=== PATIENT | female | born 1970 | race Caucasian/White ===

== ENCOUNTER 2018-11-29 12:03 | Emergency (ER) | payer BC ==
[~2018-11-29] VITALS: Ht 165.1 cm; Wt 128.8 kg
[~2018-11-29 12:03] MED LIST: ASPI-630 PO; ATOR10TA PO; LISI1TAB3 PO; METF500T16 PO; SITA100T PO
[2018-11-29 12:19] VITALS: BP 178/103
--- NOTE | 2018-11-29 12:30 | PHYS DOC ---
Past Medical History Past Medical History: Diabetes-Type II, Hypertension Past Surgical History: Appendectomy, Tubal ligation Alcohol Use: None Drug Use: None Adult General Chief Complaint Chief Complaint: KNEE INJURY HPI HPI Patient is a 48 year old female with history of hypertension, diabetes type 2, who presents today complaining of moderate pain to the left knee specifically the back of the knee that began yesterday, patient states she was stepping off a curb, and bend her knee the wrong way. She states the pain is worse on flexion of the knee. She states she is able to walk and bear weight to the left lower extremity. Review of Systems Review of Systems Constitutional: Denies fever or chills [] Musculoskeletal: Reports left knee pain Integument: Denies rash or skin lesions [] Neurologic: Denies headache, focal weakness or sensory changes [] All other systems were reviewed and found to be within normal limits, except as documented in this note. Allergies Allergies Allergies Coded Allergies Type Severity Reaction Last Updated Verified codeine Allergy Intermediate 10/20/15 Yes Physical Exam Physical Exam Constitutional: Well developed, well nourished, no acute distress, non-toxic appearance. [] Back: No tenderness, no CVA tenderness. [] Extremities: Left knee with no obvious deformity. No tenderness on exam. Pain elicited on flexion of the knee. Adequate extension of the knee. No laxity. +2 left pedal pulse. Cap refill less than 2 seconds the left lower extremity. Neurologic: Alert and oriented X 3, normal motor function, normal sensory function, no focal deficits noted. [] Psychologic: Affect normal, judgement normal, mood normal. [] Current Patient Data Vital Signs Vital Signs Date Time Temp Pulse Resp B/P (MAP) Pulse Ox O2 Delivery O2 Flow Rate FiO2 11/29/18 12:19 98.4 97 18 178/103 (128) 98 Room Air 98.4 EKG EKG [] Radiology/Procedures Radiology/Procedures []PROCEDURE: KNEE LEFT 3V KNEE LEFT 3V (AP, oblique, lateral) INDICATION: PAIN BEHIND KNEE AFTER FEELING A POP WHEN STEPPING OFF A CURB COMPARISON: None. FINDINGS: No acute fracture or malalignment. Severe medial compartment space narrowing. Otherwise moderate tricompartmental arthrosis. No obvious suprapatellar joint effusion, although patient's body habitus limits evaluation Bony mineralization is normal for the patient's age. No significant soft tissue abnormality. No radiopaque foreign body. IMPRESSION: 1. No acute fracture or malalignment. 2. Severe medial compartment space narrowing. Otherwise moderate tricompartmental arthrosis. Electronically signed by: Justyn Heath MD (11/29/2018 1:20 PM) [facility] DICTATED and SIGNED BY: JUSTYN HEATH MD DATE: 11/29/18 1320 Course & Med Decision Making Course & Med Decision Making Pertinent Labs and Imaging studies reviewed. (See chart for details) This is a 48-year-old male patient presenting to the ED today with left knee pain after stepping off a curb wrong. Left knee x-rays interpreted by radiologist are negative for any acute findings, noted for DJD of the left knee. Patient advised to ice and elevate the extremity. Given prescription for diclofenac. Follow-up with orthopedic doctor in 1-2 weeks. Dragon Disclaimer Dragon Disclaimer This electronic medical record was generated, in whole or in part, using a voice recognition dictation system. Departure Departure Impression: Primary Impression: Left knee sprain Disposition: 01 HOME, SELF-CARE Condition: STABLE Referrals: NEREIDA GRIER MD (PCP) DAWN BERNSTEIN MD follow up in 1 week Patient Instructions: Knee Sprain, [id number] Additional Instructions: You were evaluated in the emergency room for left knee pain, your left knee x- rays are negative for any acute findings you were noted for arthritis in your knee. We encourage you to ice and elevate the extremity. We wrote a prescription for pain medicines, take it as needed for pain. Follow-up with the orthopedic doctor provided in 1-2 weeks. Scripts Diclofenac Sodium (DICLOFENAC SODIUM) 50 Mg Tablet.dr 1 TAB PO BID, #20 TAB 0 Refills Prov: SALOMEKAREL APRN 11/29/18 Problem Qualifiers Primary Impression: Left knee sprain Encounter type: initial encounter Involved ligament of knee: unspecified ligament Qualified Codes: S83.92XA - Sprain of unspecified site of left knee, initial encounter KAREL MCMAHON APRN Nov 29, 2018 12:30
--- NOTE | 2018-11-29 13:23 | RAD ---
KNEE LEFT 3V (AP, oblique, lateral) INDICATION: PAIN BEHIND KNEE AFTER FEELING A POP WHEN STEPPING OFF A CURB COMPARISON: None. FINDINGS: No acute fracture or malalignment. Severe medial compartment space narrowing. Otherwise moderate tricompartmental arthrosis. No obvious suprapatellar joint effusion, although patient's body habitus limits evaluation Bony mineralization is normal for the patient's age. No significant soft tissue abnormality. No radiopaque foreign body. IMPRESSION: 1. No acute fracture or malalignment. 2. Severe medial compartment space narrowing. Otherwise moderate tricompartmental arthrosis. Electronically signed by: Justyn Heath MD (11/29/2018 1:20 PM) [facility]
[2018-11-29] MEDS ORDERED: DICL50TA4 PO (13:31)
== END 2018-11-29 13:45 | disposition home or self-care (01) ==
LOC: ER 12:03
DX: S83.8X2A Sprain of other specified parts of left knee, initial encounter (principal); E11.9 Type 2 diabetes mellitus without complications; I10 Essential (primary) hypertension; Z90.89 Acquired absence of other organs; Z98.51 Tubal ligation status; Z88.5 Allergy status to narcotic agent; W10.1XXA Fall (on)(from) sidewalk curb, initial encounter; Y93.89 Activity, other specified; Y92.89 Other specified places as the place of occurrence of the external cause; Y99.8 Other external cause status
CPT/HCPCS: 73562; 99283

== ENCOUNTER 2019-01-07 11:27 | Observation (INO) | payer BC ==
[~2019-01-07] VITALS: Ht 165.1 cm; Wt 139.3 kg
[~2019-01-07 11:27] MED LIST changes: +DICL50TA4 PO
[2019-01-07] MEDS ORDERED: ASPIRIN 325 MG TABLET PO ONE (12:00)
[2019-01-07] MEDS ORDERED: IV NORMAL SALINE 1000ML BAG 1,000 ML IV ONE (12:00)
[2019-01-07 12:08] LABS: BASO % 1 % (0-3); EOS # 0.2 x10^3/uL (0.0-0.7); EOS % 3 % (0-3); HEMATOCRIT 37.6 % (36.0-47.0); HEMOGLOBIN 12.4 g/dL (12.0-15.5); LYMPH # 2.4 x10^3/uL (1.0-4.8); LYMPH % 30 % (24-48); MEAN CORPUSCULAR HEMOGLOBIN 29 pg (25-35); MEAN CORPUSCULAR HGB CONC 33 g/dL (31-37); MEAN CORPUSCULAR VOLUME 88 fL (79-100); MONO # 0.6 x10^3/uL (0.0-1.1); MONO % 8 % (0-9); NEUT # 4.6 x10^3uL (1.8-7.7); NEUT % 59 % (31-73); PLATELET COUNT 280 x10^3/uL (140-400); RED BLOOD COUNT 4.29 x10^6/uL (3.50-5.40); RED CELL DISTRIBUTION WIDTH 14.1 % (11.5-14.5); WHITE BLOOD COUNT 7.9 x10^3/uL (4.0-11.0)
--- NOTE | 2019-01-07 12:15 | PHYS DOC ---
Past Medical History Past Medical History: Diabetes-Type II, Hypertension Past Surgical History: Appendectomy, Tubal ligation Smoking: Quit Greater Than 1 Year Alcohol Use: None Drug Use: None Adult General Chief Complaint Chief Complaint: CHEST PAIN HPI HPI Patient is a 48 year old female who presents with substernal chest pain that began yesterday morning at 0300. The pain woke her up from sleep and has been a constant pressure since onset. It radiated to between her shoulders and is associated with nausea but no vomiting. She has been more diaphoretic since onset. The pain is exertional, sometime pleuritic and worse with laying flat. She has experienced intermittent palpitations for the past day. Denies dizziness, cough, hemoptysis, unilateral lower extremity swelling, numbness or tingling. She is post menopausal and does not believe she could be . Review of Systems Review of Systems Constitutional: Denies fever or chills [] Eyes: Denies change in visual acuity, blurred vision or diplopia [] HENT: Denies nasal congestion or sore throat [] Respiratory: Denies cough, hemoptysis or shortness of breath [] Cardiovascular: Reports chest pain and palpitations. [] GI: Reports nausea. Denies abdominal pain, vomiting or diarrhea. [] : Denies dysuria or hematuria [] Musculoskeletal: Reports radiation of pain to back [] Integument: Denies rash or skin lesions [] Neurologic: Denies headache, dizziness, focal weakness or sensory changes [] Complete review of systems found to be within normal limits, except as documented in this note. Current Medications Current Medications Current Medications Medications (Trade) Dose Ordered Sig/[facility] Start Time Stop Time Status Last Admin Dose Admin Aspirin (Lacey Aspirin) 325 mg 1X ONCE 01/07/19 12:00 01/07/19 12:24 DC Fentanyl Citrate (Fentanyl 2ml Vial) 100 mcg STK-MED ONCE 01/07/19 13:42 01/07/19 13:43 DC Ondansetron HCl (Zofran) 4 mg 1X ONCE 01/07/19 14:00 01/07/19 14:01 01/07/19 13:46 4 MG Sodium Chloride 1,000 ml @ 1,000 mls/hr 1X ONCE 01/07/19 12:00 01/07/19 12:59 DC 01/07/19 12:20 1,000 MLS/HR Allergies Allergies Allergies Coded Allergies Type Severity Reaction Last Updated Verified aspirin Allergy Intermediate rash 01/07/19 Yes codeine Allergy Intermediate 10/20/15 Yes Physical Exam Physical Exam Constitutional: Obese female sitting in hospital bed concerned but in no acute distress, non-toxic appearance. [] HENT: Normocephalic, atraumatic. [] Eyes: EOMI, conjunctiva normal, no discharge. [] Neck: Normal range of motion, no tenderness, supple, no stridor. [] Cardiovascular:Heart rate regular rhythm, no murmur [] Lungs & Thorax: Bilateral breath sounds clear to auscultation [] Abdomen: Soft and nontender [] Skin: Warm and diaphoretic without erythema or rash. [] Extremities: Radial pulses +2 b/l, cap refill < 2 seconds, no cyanosis [] Neurologic: Alert and oriented, normal motor function, normal sensory function, no focal deficits noted. [] Psychologic: Affect normal, judgement normal, mood normal. [] Current Patient Data Vital Signs Vital Signs Date Time Temp Pulse Resp B/P (MAP) Pulse Ox O2 Delivery O2 Flow Rate FiO2 01/07/19 12:31 84 20 163/84 (110) 98 Room Air 01/07/19 11:30 98.9 98.9 Lab Values Laboratory Tests Test 01/07/19 11:40 01/07/19 11:41 White Blood Count 7.9 x10^3/uL (4.0-11.0) Red Blood Count 4.29 x10^6/uL (3.50-5.40) Hemoglobin 12.4 g/dL (12.0-15.5) Hematocrit 37.6 % (36.0-47.0) Mean Corpuscular Volume 88 fL (79-100) Mean Corpuscular Hemoglobin 29 pg (25-35) Mean Corpuscular Hemoglobin Concent 33 g/dL (31-37) Red Cell Distribution Width 14.1 % (11.5-14.5) Platelet Count 280 x10^3/uL (140-400) Neutrophils (%) (Auto) 59 % (31-73) Lymphocytes (%) (Auto) 30 % (24-48) Monocytes (%) (Auto) 8 % (0-9) Eosinophils (%) (Auto) 3 % (0-3) Basophils (%) (Auto) 1 % (0-3) Neutrophils # (Auto) 4.6 x10^3uL (1.8-7.7) Lymphocytes # (Auto) 2.4 x10^3/uL (1.0-4.8) Monocytes # (Auto) 0.6 x10^3/uL (0.0-1.1) Eosinophils # (Auto) 0.2 x10^3/uL (0.0-0.7) Basophils # (Auto) 0.0 x10^3/uL (0.0-0.2) Prothrombin Time 11.7 SEC (11.7-14.0) Prothrombin Time INR 0.9 (0.8-1.1) Sodium Level 140 mmol/L (136-145) Potassium Level 4.1 mmol/L (3.5-5.1) Chloride Level 102 mmol/L (98-107) Carbon Dioxide Level 28 mmol/L (21-32) Anion Gap 10 (6-14) Blood Urea Nitrogen 14 mg/dL (7-20) Creatinine 0.8 mg/dL (0.6-1.0) Estimated GFR (Cockcroft-Gault) 76.6 BUN/Creatinine Ratio 18 (6-20) Glucose Level 172 mg/dL (70-99) H Calcium Level 9.6 mg/dL (8.5-10.1) Magnesium Level 1.6 mg/dL (1.8-2.4) L Total Bilirubin 0.3 mg/dL (0.2-1.0) Aspartate Amino Transferase (AST) 21 U/L (15-37) Alanine Aminotransferase (ALT) 51 U/L (14-59) Alkaline Phosphatase 79 U/L (46-116) Creatine Kinase 96 U/L (26-192) Creatine Kinase MB (Mass) 1.0 ng/mL (0.0-3.6) Creatine Kinase MB Relative Index 1.0 % (0-4) Troponin I Quantitative < 0.017 ng/mL (0.000-0.055) FX-Wnu-D-Type Natriuretic Peptide 91 pg/mL (0-124) Total Protein 7.4 g/dL (6.4-8.2) Albumin 3.8 g/dL (3.4-5.0) Albumin/Globulin Ratio 1.1 (1.0-1.7) Lipase 122 U/L (73-393) D-Dimer (Lisset) 1.17 ug/mlFEU (0.00-0.50) H Laboratory Tests 01/07/19 11:40 Laboratory Tests 01/07/19 11:40 EKG EKG @1135: Normal sinus rhythm with rate of 92. Low voltage EKG. Possible Q waves in I and aVL with T wave inversion although moderate amount of baseline variability present. Upright QRS in aVR. Limb lead reversal possible. No ST segment elevation or depression. @1227: Normal sinus rhythm with rate of 77. No Q waves. Normal axis. No ST segment elevation or depression. No T wave inversion. Confirmed limb lead reversal on previous EKG at 1135.[] Radiology/Procedures Radiology/Procedures [] Course & Med Decision Making Course & Med Decision Making Pertinent Labs and Imaging studies reviewed. (See chart for details) Patient is a 48 year old female who was woke from sleep yesterday at 0300 with substernal pressure radiating to her back. She has a history of HTN, DM2, and former tobacco use as well as a strong family history for CAD and family history of thrombosis. Patient is PERC negative but d-dimer pending given her family history of VTE. Patient denies cough, hemoptysis or unilateral leg swelling. Vital signs stable. CBC, PT/INR and CMP unremarkable aside from glucose of 172. Troponin negative. CK-MB negative. Pro-BNP negative. Heart score of 4. Patient complained of persistent pressure and nausea. Symptoms addressed with interval improvement. Pt states that she is allergic to aspirin and thus it was held in ED. Discussed with patient the benefits of admission for further evaluation of chest pain's etiology. D-dimer positive at 1.[address] order CT pulmonary angiogram. Will follow up with results. Patient requiring admission for further evaluation and treatment. Discussed with Dr. Beard who is in agreement with admission. Discussed findings and plan with patient, who acknowledge understanding and agreement. [] Dragon Disclaimer Dragon Disclaimer This electronic medical record was generated, in whole or in part, using a voice recognition dictation system. Departure Departure Impression: Primary Impression: Chest pain Additional Impressions: Elevated d-dimer Hyperglycemia Disposition: ADMITTED INPATIENT Admitting Physician: Other Condition: STABLE Referrals: NEREIDA GRIER MD (PCP) The HEART Score for CP Pts HEART Score for Chest Pain: HEART Score for Chest Pain Response (Comments) Value History Moderately Suspicious 1 ECG Nonspecific Repolarizatio 1 Age >45 - < 65 1 Risk Factors >3 Risk Factors or Hx CAD 2 Total 5 Risk Factors: Risk Factors: DM, Current or recent (<one month) smoker, HTN, HLP, family history of CAD, obesity. Risk Scores: Score 0 - 3: 2.5% MACE over next 6 weeks - Discharge Home Score 4 - 6: 20.3% MACE over next 6 weeks - Admit for Clinical Observation Score 7 - 10: 72.7% MACE over next 6 weeks - Early Invasive Strategies PERC Rule for PE PERC Rule for PE PERC Rule for PE Response (Comments) Value Age > 50: No 0 HR > 100: No 0 Sa02 on room air <95%: No 0 Unilateral leg swelling: No 0 Hemoptysis: No 0 Recent surgery or trauma: No 0 Prior PE or DVT: No 0 Hormone use: No 0 Total 0 Problem Qualifiers Primary Impression: Chest pain Chest pain type: unspecified Qualified Codes: R07.9 - Chest pain, unspecified JOSE NORTON DO January 07, 2019 12:15
--- NOTE | 2019-01-07 12:17 | EKG ---
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
[2019-01-07 12:18] LABS: PROTHROMBIN TIME PATIENT 11.7 SEC (11.7-14.0)
[2019-01-07 12:22] LABS: CALCIUM 9.6 mg/dL (8.5-10.1); CREATININE 0.8 mg/dL (0.6-1.0); GFR 76.6; POTASSIUM 4.1 mmol/L (3.5-5.1)
[2019-01-07 12:34] LABS: ALBUMIN 3.8 g/dL (3.4-5.0); ALBUMIN/GLOBULIN RATIO 1.1 (1.0-1.7); MAGNESIUM 1.6 mg/dL (1.8-2.4); TOTAL BILIRUBIN 0.3 mg/dL (0.2-1.0); TOTAL PROTEIN 7.4 g/dL (6.4-8.2)
--- NOTE | 2019-01-07 12:56 | EKG ---
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
[2019-01-07] MEDS ORDERED: fentaNYL PF VIAL 100 MCG/2 ML VIAL ONE (13:42)
[2019-01-07] MEDS ORDERED: fentaNYL PF VIAL 100 MCG/2 ML VIAL IV ONE (14:00)
[2019-01-07] MEDS ORDERED: DEXTROSE 50% 25 GM / 50ML DISP.SYRIN. IV PRN ×2 (14:00→17:15)
[2019-01-07] MEDS ORDERED: ONDANSETRON PF 4 MG/2 ML VIAL. IV ONE (14:00)
[2019-01-07] MEDS ORDERED: ONDANSETRON PF 4 MG/2 ML VIAL. IV PRN (14:00)
[2019-01-07] MEDS ORDERED: fentaNYL PF VIAL 100 MCG/2 ML VIAL IV PRN (14:00)
[2019-01-07] MEDS ORDERED: CONTRAST GIVEN. MC PRN (14:15)
--- NOTE | 2019-01-07 14:20 | PDOC1 ---
History and Physical Date of Admission Date of Admission DATE: 01/07/19 TIME: 14:20 Identification/Chief Complaint Chief Complaint Chest pain Source Source: Patient History of Present Illness History of Present Illness Ms Roland is a 48 year old female w/ PMHx DM2 (A1c 6.9), HTN, ex-smoker (8 years) who was woke from sleep yesterday at 0300 with substernal pressure radiating to her back. She fell back asleep most the day yesterday and awoke with the same pain this morning, but now also notes a squeezing pain beneath her left breast that is not reproducible. She went to urgent care where her BP was 205/117 and was instructed to go to the ED. Initially had concerning EKG, however noted to have upright QRS in AVR and repeat EKG confirmed limb lead reversal. Normal sinus rhythm with rate of 77. No Q waves. Normal axis. No ST segment elevation or depression. No T wave inversion. She has a strong family history for CAD and family history of thrombosis. Patient denies cough, hemoptysis or unilateral leg swelling. D dimer was elevated. CBC, PT/INR and CMP unremarkable aside from glucose of 172. Troponin negative. CK-MB negative. Pro-BNP negative. Patient complained of persistent pressure and nausea even after NTG. States she has an ASA allergy. CTPA performed which was of poor quality, no PE detected. Past Medical History Cardiovascular: HTN Pulmonary: Asthma CENTRAL NERVOUS SYSTEM: Other GI: No pertinent hx Heme/Onc: No pertinent hx Hepatobiliary: No pertinent hx Psych: No pertinent hx Musculoskeletal: Other Rheumatologic: No pertinent hx Infectious disease: No pertinent hx Endocrine: Diabetes Past Surgical History Past Surgical History: Appendectomy, Other Family History Family History: Coronary Artery Disease, Hypertension Social History Smoke: Quit (2010 quit) ALCOHOL: occassional Drugs: None Current Problem List Problem List Problems Medical Problems: (1) Chest pain Status: Acute (2) Elevated d-dimer Status: Acute (3) Hyperglycemia Status: Acute Current Medications Current Medications Current Medications Aspirin (Lacey Aspirin) 325 mg 1X ONCE PO ; Start 01/07/19 at 12:00; Stop 01/07/19 at 12:24; Status DC Sodium Chloride 1,000 ml @ 1,000 mls/hr 1X ONCE IV Last administered on 01/07/19at 12:20; Start 01/07/19 at 12:00; Stop 01/07/19 at 12:59; Status DC Fentanyl Citrate (Fentanyl 2ml Vial) 50 mcg 1X ONCE IV Last administered on 01/07/19at 13:47; Start 01/07/19 at 14:00; Stop 01/07/19 at 14:01; Status DC Ondansetron HCl (Zofran) 4 mg 1X ONCE IV Last administered on 01/07/19at 13:46; Start 01/07/19 at 14:00; Stop 01/07/19 at 14:01; Status DC Fentanyl Citrate (Fentanyl 2ml Vial) 100 mcg STK-MED ONCE .ROUTE ; Start 01/07/19 at 13:42; Stop 01/07/19 at 13:43; Status DC Ondansetron HCl (Zofran) 4 mg PRN Q8HRS PRN IV NAUSEA/VOMITING; Start 01/07/19 at 14:00; Stop 01/08/19 at 13:59 Fentanyl Citrate (Fentanyl 2ml Vial) 50 mcg PRN Q2HR PRN IV PAIN; Start at 14:00; Stop 01/08/19 at 13:59 Insulin Human Lispro (HumaLOG) 0-5 UNITS TIDWMEALS SQ ; Start 01/07/19 at 17:00 Dextrose (Dextrose 50%-Water Syringe) 12.5 gm PRN Q15MIN PRN IV SEE COMMENTS; Start 01/07/19 at 14:00 Iohexol (Omnipaque 350 Mg/ml) 100 ml 1X ONCE IV Last administered on 01/07/19at 14:07; Start 01/07/19 at 14:30; Stop 01/07/19 at 14:31 Info (CONTRAST GIVEN -- Rx MONITORING) 1 each PRN DAILY PRN MC SEE COMMENTS; Start 01/07/19 at 14:15; Stop 01/09/19 at 14:14 Active Scripts Active Diclofenac Sodium 50 Mg Tablet.dr 1 Tab PO BID Lipitor (Atorvastatin Calcium) 10 Mg Tablet 1 Tab PO QHS Aspirin 81 Mg Tab.chew 1 Tab PO DAILY Reported Januvia (Sitagliptin Phosphate) 100 Mg Tablet 1 Tab PO DAILY Lisinopril-Hctz 10-12.5 Mg Tab (Lisinopril/Hydrochlorothiazide) 1 Each Tablet 2 Tab PO DAILY Metformin Hcl 500 Mg Tablet 2 Tab PO BID Allergies Allergies: Coded Allergies: aspirin (Verified Allergy, Intermediate, rash, 01/07/19) codeine (Verified Allergy, Intermediate, 10/20/15) ROS General: YES: Fatigue; No: Chills, Night Sweats, Malaise, Appetite, Other PSYCHOLOGICAL ROS: No: Anxiety, Behavioral Disorder, Concentration difficultie, Decreased libido, Depression, Disorientation, Hallucinations, Hostility, Irritablity, Memory difficulties, Mood Swings, Obsessive thoughts, Physical abuse, Sexual abuse, Sleep disturbances, Suicidal ideation, Other Eyes: No Blurry vision, No Decreased vision, No Double vision, No Dry eyes, No Excessive tearing, No Eye Pain, No Itchy Eyes, No Loss of vision, No Photophobia, No Scotomata, No Uses contacts, No Uses glasses, No Other HEENT: No: Heacaches, Visual Changes, Hearing change, Nasal congestion, Nasal discharge, Oral lesions, Sinus pain, Sore Throat, Epistaxis, Sneezing, Snoring, Tinnitus, Vertigo, Vocal changes, Other ALLERGY AND IMMUNOLOGY: No: Hives, Insect Bite Sensitivity, Itchy/Watery Eyes, Nasal Congestion, Post Nasal Drip, Seasonal Allergies, Other Hematological and Lymphatic: No: Bleeding Problems, Blood Clots, Blood Transfusions, Brusing, Night Sweats, Pallor, Swollen Lymph Nodes, Other ENDOCRINE: No: Breast Changes, Galactorrhea, Hair Pattern Changes, Hot Flashes, Malaise/lethargy, Mood Swings, Palpitations, Polydipsia/polyuria, Skin Changes, Temperature Intolerance, Unexpected Weight Changes, Other Breast: No New/Changing Breast Lumps, No Nipple changes, No Nipple discharge, No Other Respiratory: YES: Shortness of breath; No: Cough, Hemoptysis, Orthopnea, Pleuritic Pain, SOB with excertion, Sputum Changes, Stridor, Tachypnea, Wheezing, Other Cardiovascular: yes Chest Pain; No Palpitations, No Orthopnea, No Paroxysmal Noc. Dyspnea, No Edema, No Lt Headedness, No Other Gastrointestinal: Yes Nausea; No Vomiting, No Abdominal Pain, No Diarrhea, No Constipation, No Melena, No Hematochezia, No Other Genitourinary: No Dysuria, No Frequency, No Incontinence, No Hematuria, No Retention, No Discharge, No Urgency, No Pain, No Flank Pain, No Other, No , No , No , No , No , No , No Musculoskeletal: No Gait Disturbance, No Joint Pain, No Joint Stiffness, No Joint Swelling, No Muscle Pain, No Muscular Weakness, No Pain In:, No Swelling In:, No Other Neurological: No Behavorial Changes, No Bowel/Bladder ControlChng, No Confusion, No Dizziness, No Gait Disturbance, No Headaches, No Impaired Coord/balance, No Memory Loss, No Numbness/Tingling, No Seizures, No Speech Problems, No Tremors, No Visual Changes, No Weakness, No Other Skin: No Dry Skin, No Eczema, No Hair Changes, No Lumps, No Mole Changes, No Mottling, No Nail Changes, No Pruritus, No Rash, No Skin Lesion Changes, No Other, No Acne Physical Exam General: Alert, Oriented X3, Cooperative, No acute distress HEENT: Atraumatic, PERRLA, EOMI, Mucous membr. moist/pink Lungs: Clear to auscultation, Normal air movement Heart: S1S2, RRR, no gallops, no murmurs Abdomen: Normal bowel sounds, Soft, No tenderness, No hepatosplenomegaly, No masses Rectal Exam: not examined Extremities: No clubbing, No cyanosis, No edema, Normal pulses, No tenderness/swelling Skin: No rashes, No breakdown, No significant lesion Neuro: Normal gait, Normal speech, Strength at 5/5 X4 ext, Normal tone, Sensation intact, Cranial nerves 3-12 NL, Reflexes 2+ Psych/Mental Status: Mental status NL, Mood NL Vitals Vitals Vital Signs Date Time Temp Pulse Resp B/P (MAP) Pulse Ox O2 Delivery O2 Flow Rate FiO2 01/07/19 12:31 84 20 163/84 (110) 98 Room Air 01/07/19 11:30 98.9 98.9 Labs Labs Laboratory Tests Test 01/07/19 11:40 01/07/19 11:41 White Blood Count 7.9 x10^3/uL (4.0-11.0) Red Blood Count 4.29 x10^6/uL (3.50-5.40) Hemoglobin 12.4 g/dL (12.0-15.5) Hematocrit 37.6 % (36.0-47.0) Mean Corpuscular Volume 88 fL (79-100) Mean Corpuscular Hemoglobin 29 pg (25-35) Mean Corpuscular Hemoglobin Concent 33 g/dL (31-37) Red Cell Distribution Width 14.1 % (11.5-14.5) Platelet Count 280 x10^3/uL (140-400) Neutrophils (%) (Auto) 59 % (31-73) Lymphocytes (%) (Auto) 30 % (24-48) Monocytes (%) (Auto) 8 % (0-9) Eosinophils (%) (Auto) 3 % (0-3) Basophils (%) (Auto) 1 % (0-3) Neutrophils # (Auto) 4.6 x10^3uL (1.8-7.7) Lymphocytes # (Auto) 2.4 x10^3/uL (1.0-4.8) Monocytes # (Auto) 0.6 x10^3/uL (0.0-1.1) Eosinophils # (Auto) 0.2 x10^3/uL (0.0-0.7) Basophils # (Auto) 0.0 x10^3/uL (0.0-0.2) Prothrombin Time 11.7 SEC (11.7-14.0) Prothromb Time International Ratio 0.9 (0.8-1.1) Sodium Level 140 mmol/L (136-145) Potassium Level 4.1 mmol/L (3.5-5.1) Chloride Level 102 mmol/L (98-107) Carbon Dioxide Level 28 mmol/L (21-32) Anion Gap 10 (6-14) Blood Urea Nitrogen 14 mg/dL (7-20) Creatinine 0.8 mg/dL (0.6-1.0) Estimated GFR (Cockcroft-Gault) 76.6 BUN/Creatinine Ratio 18 (6-20) Glucose Level 172 mg/dL (70-99) Calcium Level 9.6 mg/dL (8.5-10.1) Magnesium Level 1.6 mg/dL (1.8-2.4) Total Bilirubin 0.3 mg/dL (0.2-1.0) Aspartate Amino Transf (AST/SGOT) 21 U/L (15-37) Alanine Aminotransferase (ALT/SGPT) 51 U/L (14-59) Alkaline Phosphatase 79 U/L (46-116) Creatine Kinase 96 U/L (26-192) Creatine Kinase MB (Mass) 1.0 ng/mL (0.0-3.6) Creatine Kinase MB Relative Index 1.0 % (0-4) Troponin I Quantitative < 0.017 ng/mL (0.000-0.055) CN-Hff-E-Type Natriuretic Peptide 91 pg/mL (0-124) Total Protein 7.4 g/dL (6.4-8.2) Albumin 3.8 g/dL (3.4-5.0) Albumin/Globulin Ratio 1.1 (1.0-1.7) Lipase 122 U/L (73-393) D-Dimer (Lisset) 1.17 ug/mlFEU (0.00-0.50) Laboratory Tests Test 01/07/19 11:40 01/07/19 11:41 White Blood Count 7.9 x10^3/uL (4.0-11.0) Red Blood Count 4.29 x10^6/uL (3.50-5.40) Hemoglobin 12.4 g/dL (12.0-15.5) Hematocrit 37.6 % (36.0-47.0) Mean Corpuscular Volume 88 fL (79-100) Mean Corpuscular Hemoglobin 29 pg (25-35) Mean Corpuscular Hemoglobin Concent 33 g/dL (31-37) Red Cell Distribution Width 14.1 % (11.5-14.5) Platelet Count 280 x10^3/uL (140-400) Neutrophils (%) (Auto) 59 % (31-73) Lymphocytes (%) (Auto) 30 % (24-48) Monocytes (%) (Auto) 8 % (0-9) Eosinophils (%) (Auto) 3 % (0-3) Basophils (%) (Auto) 1 % (0-3) Neutrophils # (Auto) 4.6 x10^3uL (1.8-7.7) Lymphocytes # (Auto) 2.4 x10^3/uL (1.0-4.8) Monocytes # (Auto) 0.6 x10^3/uL (0.0-1.1) Eosinophils # (Auto) 0.2 x10^3/uL (0.0-0.7) Basophils # (Auto) 0.0 x10^3/uL (0.0-0.2) Prothrombin Time 11.7 SEC (11.7-14.0) Prothromb Time International Ratio 0.9 (0.8-1.1) Sodium Level 140 mmol/L (136-145) Potassium Level 4.1 mmol/L (3.5-5.1) Chloride Level 102 mmol/L (98-107) Carbon Dioxide Level 28 mmol/L (21-32) Anion Gap 10 (6-14) Blood Urea Nitrogen 14 mg/dL (7-20) Creatinine 0.8 mg/dL (0.6-1.0) Estimated GFR (Cockcroft-Gault) 76.6 BUN/Creatinine Ratio 18 (6-20) Glucose Level 172 mg/dL (70-99) Calcium Level 9.6 mg/dL (8.5-10.1) Magnesium Level 1.6 mg/dL (1.8-2.4) Total Bilirubin 0.3 mg/dL (0.2-1.0) Aspartate Amino Transf (AST/SGOT) 21 U/L (15-37) Alanine Aminotransferase (ALT/SGPT) 51 U/L (14-59) Alkaline Phosphatase 79 U/L (46-116) Creatine Kinase 96 U/L (26-192) Creatine Kinase MB (Mass) 1.0 ng/mL (0.0-3.6) Creatine Kinase MB Relative Index 1.0 % (0-4) Troponin I Quantitative < 0.017 ng/mL (0.000-0.055) ID-Bby-A-Type Natriuretic Peptide 91 pg/mL (0-124) Total Protein 7.4 g/dL (6.4-8.2) Albumin 3.8 g/dL (3.4-5.0) Albumin/Globulin Ratio 1.1 (1.0-1.7) Lipase 122 U/L (73-393) D-Dimer (Lisset) 1.17 ug/mlFEU (0.00-0.50) Images Images CTPA - The visualized thyroid gland grossly appears unremarkable. The central airways are patent. The caliber of the aorta grossly appears unremarkable. The heart size grossly appears unremarkable. No radiologically significant mediastinal lymphadenopathy is identified. There is not enough contrast within the pulmonary artery and its branches for evaluation of pulmonary embolism. The lungs are clear. No evidence of pleural effusion or pneumothorax. Diffuse decreased attenuation noted in the liver likely hepatic steatosis. Mild degenerative changes thoracic spine. VTE Prophylaxis Ordered VTE Prophylaxis Devices: Yes VTE Pharmacological Prophylaxi: Yes Assessment/Plan Assessment/Plan A/P: Chest pain - moderate-high risk for ACS given DM2, HTN, post-menopausal, family history positive. Initial troponin and EKG negative, will trend troponin, consult cardiology. DM2 (A1c 6.9) - on metformin, januvia and toujeo. Advised SGLT-2 and GLP-1 outpatient, willl place on basal bolus plus inpatient. Morbid Obesity - counseled on weight loss, advised SGLT-2 (jardiance) and GLP1 (victoza) for her DM2 as well HTN - cont home meds, monitor Ex-smoker - 8 years quit. Will monitor Hypomagnesemia - will replace, repeat level in AM Positive D dimer - CTPA not helpful, will consider VQ scan in AM, check dopplers of LE in meantime. will place on thromboprophylaxis FEN - Cardiac ADA diet, NPO after midnight PPX - lovenox FULL CODE CVC for chest pain higher risk for ACS CHELY MCGARRY MD January 07, 2019 14:20
[2019-01-07] MEDS ORDERED: IOHEXOL 350 MG/ML 100 ML VIAL. IV ONE (14:30)
--- NOTE | 2019-01-07 14:31 | RAD ---
Examination: CT angiography chest HISTORY: History of chest pain, elevated d-dimer COMPARISON: None available TECHNIQUE: Axial CT and radiographic images were performed with IV contrast. Coronal and sagittal 3-D MIP reformats are performed Exposure: One or more of the following individualized dose reduction techniques were utilized for this examination: 1. Automated exposure control 2. Adjustment of the mA and/or kV according to patient size 3. Use of iterative reconstruction technique FINDINGS: The visualized thyroid gland grossly appears unremarkable. The central airways are patent. The caliber of the aorta grossly appears unremarkable. The heart size grossly appears unremarkable. No radiologically significant mediastinal lymphadenopathy is identified. There is not enough contrast within the pulmonary artery and its branches for evaluation of pulmonary embolism. The lungs are clear. No evidence of pleural effusion or pneumothorax. Diffuse decreased attenuation noted in the liver likely hepatic steatosis. Mild degenerative changes thoracic spine. IMPRESSION: 1. Nondiagnostic exam as there is not enough contrast within the pulmonary artery and its branches for evaluation of pulmonary embolism. Recommend follow-up VQ scan and ultrasound lower extremity DVT study. 2. The lungs are clear. 3. Hepatic steatosis. Electronically signed by: Ron Dyer MD (01/07/2019 2:28 PM) [id number]
--- NOTE | 2019-01-07 16:00 | NUR ---
The patient, CORBY HAYES, 48 y/o F, was given written information regarding hospital policies, unit procedures and contact persons. Valuables checked and left in room with patient. Pt arrived to unit from ER via wheelchair. Pt ambulated to bed. Family at bedside. Pt reports midsternal chest pain improving and rated 5/10. No complaints of SOB. Blood pressure on admission reading 208/98 and heart rate 92. This RN given orders from cardiology RETREAD MOLD OPERATOR for 20 mg labetalol IVP. Pt resting in bed at this time. Call light within reach. Will continue to monitor.
[2019-01-07 16:20] VITALS: BP 208/98
[2019-01-07] MEDS ORDERED: LABETALOL 20 MG/4 ML DISP.SYRIN. IVP PRN (16:30)
[2019-01-07] MEDS ORDERED: INSULIN LISPRO 300 UNITS/3 ML INSULN.PEN. SQ SCH (17:00)
[2019-01-07] MEDS: INSULIN LISPRO 300 UNITS/3 ML INSULN.PEN. SQ SCH (17:30)
[2019-01-07] MEDS: hydroCHLOROthiazide 25 MG TABLET PO SCH (17:30)
[2019-01-07] MEDS: LISINOPRIL 20 MG TABLET PO SCH (17:30)
[2019-01-07 17:41] VITALS: BP 142/63
[2019-01-07] MEDS ORDERED: CHOL20009 PO (17:58)
[2019-01-07 19:20] VITALS: BP 136/66
[2019-01-07] MEDS ORDERED: MAGNESIUM SULFATE 4GM 100 ML IV ONE (20:00)
[2019-01-07] MEDS ORDERED: NITROGLYCERIN SUBLINGUAL 0.4 MG BOTTLE OF 25. SL PRN (20:00)
--- NOTE | 2019-01-07 20:22 | RAD ---
Bilateral lower extremity venous duplex study 01/07/2019 Clinical History: Elevated d-dimer. Chest pain. Technique: Using a combination of real time ultrasound imaging and color-flow and pulse Doppler imaging techniques along with graded compression and augmentation, duplex evaluation of the deep venous system of the both lower extremities was performed. Multiple images were obtained. Findings: The study is limited to some degree due to the patient's large body habitus. There is no sonographic evidence of deep venous thrombosis involving the visualized deep venous structures of either lower extremity. Impression: Negative study. Electronically signed by: Cm Jones MD (01/07/2019 8:19 PM) [facility]
[2019-01-07] MEDS: ATORVASTATIN CALCIUM 10 MG TABLET. PO SCH (22:10)
[2019-01-07] MEDS: ENOXAPARIN 40 MG/0.4 ML SYRINGE. SQ SCH (22:11)
[2019-01-07] MEDS: INSULIN GLARGINE 300 UNITS/3 ML INSULN.PEN. SQ SCH (22:19)
[2019-01-07 22:53] VITALS: BP 137/73
[2019-01-08] VITALS (14 sets, daily range): BP systolic 117–163; BP diastolic 56–87
[2019-01-08 05:56] LABS: CREATININE 0.9 mg/dL (0.6-1.0); GFR 66.8; MAGNESIUM 2.3 mg/dL (1.8-2.4); POTASSIUM 4.2 mmol/L (3.5-5.1)
[2019-01-08 06:11] LABS: CHOLESTEROL/HDL RATIO 4.1
[2019-01-08] MEDS: INSULIN LISPRO 300 UNITS/3 ML INSULN.PEN. SQ SCH ×3 (08:00→17:00)
[2019-01-08] MEDS ORDERED: [UNRECOGNIZED DRUG - OTHER] PO SCH (09:00)
[2019-01-08] MEDS: hydroCHLOROthiazide 25 MG TABLET PO SCH (09:00)
[2019-01-08] MEDS ORDERED: HYDROCHLOROTHIAZIDE PO SCH (09:00)
[2019-01-08] MEDS ORDERED: ASPIRIN CHEWABLE 81 MG TABLET. PO SCH (09:00)
[2019-01-08] MEDS ORDERED: LISINOPRIL PO SCH (09:00)
--- NOTE | 2019-01-08 09:06 | RAD ---
Ventilation/perfusion lung scan, 01/08/2019: HISTORY: Elevated d-dimer, chest pain The ventilation study was performed utilizing 15 mCi of xenon-133. Activity in the lungs is mildly heterogeneous, likely related to the patient's size. There is fairly good washout of the xenon from the lungs. Perfusion imaging was performed utilizing 5.5 mCi of technetium 99m MAA. A similar pattern of activity is present in the lungs. No significant unmatched or segmental perfusion defects are seen. IMPRESSION: There are no VQ findings to suggest pulmonary emboli. Electronically signed by: Cheko Guerin MD (01/08/2019 9:03 AM) [facility]
--- NOTE | 2019-01-08 09:35 | PDOC2 ---
SKYLA FINE CONTROL ROOM TENDER 01/08/19 0935: CARDIAC CONSULT DATE OF CONSULT Date of Consult DATE: 01/08/19 TIME: 09:23 REASON FOR CONSULT Reason for Consult: Chest pain REFERRING PHYSICIAN Referring Physician: Hannah SOURCE Source: Chart review, Patient HISTORY OF PRESENT ILLNESS HISTORY OF PRESENT ILLNESS This is a pleasant 48 yo female admitted for complains of chest pain. Reports that in the last week she has been more fatigue, noting some BOWDEN. Reports that in the last 2 days she has been having chest tightness. It got better the other but it returned yesterday. Reports of nausea associated with it, some SOA and diaphoretic lasting about 15 minutes at least. She has DM insulin dependent. No statin. Also was noted with high BP when admitted which is now better. No prior and recent respiratory infections, vomiting, falls, recent injury. NO hx of CAD, VTE. She has never been tested for JOESPH and has gained about 25lbs in the last yr. PAST MEDICAL HISTORY Cardiovascular: HTN Pulmonary: No pertinent hx CENTRAL NERVOUS SYSTEM: Other (No pertinent history) GI: No pertinent hx Heme/Onc: No pertinent hx Hepatobiliary: No pertinent hx Psych: No pertinent hx Musculoskeletal: Osteoarthritis Rheumatologic: No pertinent hx Infectious disease: No pertinent hx ENT: No pertinent hx Renal/: No pertinent hx Endocrine: Diabetes (2) Dermatology: No pertinent hx PAST SURGICAL HISTORY Past Surgical History: Appendectomy, (x1), Tubal Ligation, Other (lipoma removal to buttocks) FAMILY HISTORY Family History: Coronary Artery Disease (father and grandfather) SOCIAL HISTORY Smoke: Quit (8 yrs ago 19 pk yr) ALCOHOL: none Drugs: None Lives: with Family CURRENT MEDICATIONS CURRENT MEDICATIONS Current Medications Medications (Trade) Dose Ordered Sig/[place] Route PRN Reason Start Time Stop Time Status Last Admin Dose Admin Sodium Chloride 1,000 ml @ 1,000 mls/hr 1X ONCE IV 01/07/19 12:00 01/07/19 12:59 DC 01/07/19 12:20 Fentanyl Citrate (Fentanyl 2ml Vial) 50 mcg 1X ONCE IV 01/07/19 14:00 01/07/19 14:01 DC 01/07/19 13:47 Ondansetron HCl (Zofran) 4 mg 1X ONCE IV 01/07/19 14:00 01/07/19 14:01 DC 01/07/19 13:46 Iohexol (Omnipaque 350 Mg/ml) 100 ml 1X ONCE IV 01/07/19 14:30 01/07/19 14:31 DC 01/07/19 14:07 Labetalol HCl (Normodyne Iv Push) 20 mg PRN Q2HR PRN IVP HYPERTENSION 01/07/19 16:30 01/07/19 16:41 Atorvastatin Calcium (Lipitor) 10 mg QHS PO 01/07/19 21:00 01/07/19 22:10 Insulin Glargine (Lantus) 5 units QHS SQ 01/07/19 21:00 01/07/19 22:19 Magnesium Sulfate/ Dextrose 100 ml @ 25 mls/hr 1X ONCE IV 01/07/19 20:00 01/07/19 23:59 DC 01/07/19 22:12 Enoxaparin Sodium (Lovenox 40mg Syringe) 40 mg Q24H SQ 01/07/19 20:15 01/07/19 22:11 ALLERGIES ALLERGIES: Coded Allergies: aspirin (Verified Allergy, Intermediate, rash, 01/07/19) codeine (Verified Allergy, Intermediate, 10/20/15) ROS Review of System 14 point ROS evaluated with pertinent positives noted per HPI PHYSICAL EXAM General: Alert, Oriented X3, Cooperative, No acute distress HEENT: Atraumatic, Mucous membr. moist/pink Lungs: Clear to auscultation, Normal air movement Heart: Regular rate (SR), Normal S1, Normal S2, No murmurs Abdomen: Soft, No tenderness, Other (obese) Extremities: No cyanosis, Other (1+ bilateral LE pittingede) Skin: No breakdown, No significant lesion Neuro: Normal speech, Sensation intact Psych/Mental Status: Mental status NL, Mood NL MUSCULOSKELETAL: Osteoarthritic changes both hands VITALS VITALS Vital Signs Date Time Temp Pulse Resp B/P (MAP) Pulse Ox O2 Delivery O2 Flow Rate FiO2 01/08/19 07:52 Room Air 01/08/19 07:00 97.7 82 18 118/56 (76) 97 97.7 LABS Lab: Laboratory Tests Test 01/07/19 11:40 01/07/19 11:41 01/07/19 16:35 01/07/19 16:55 White Blood Count 7.9 x10^3/uL (4.0-11.0) Red Blood Count 4.29 x10^6/uL (3.50-5.40) Hemoglobin 12.4 g/dL (12.0-15.5) Hematocrit 37.6 % (36.0-47.0) Mean Corpuscular Volume 88 fL (79-100) Mean Corpuscular Hemoglobin 29 pg (25-35) Mean Corpuscular Hemoglobin Concent 33 g/dL (31-37) Red Cell Distribution Width 14.1 % (11.5-14.5) Platelet Count 280 x10^3/uL (140-400) Neutrophils (%) (Auto) 59 % (31-73) Lymphocytes (%) (Auto) 30 % (24-48) Monocytes (%) (Auto) 8 % (0-9) Eosinophils (%) (Auto) 3 % (0-3) Basophils (%) (Auto) 1 % (0-3) Neutrophils # (Auto) 4.6 x10^3uL (1.8-7.7) Lymphocytes # (Auto) 2.4 x10^3/uL (1.0-4.8) Monocytes # (Auto) 0.6 x10^3/uL (0.0-1.1) Eosinophils # (Auto) 0.2 x10^3/uL (0.0-0.7) Basophils # (Auto) 0.0 x10^3/uL (0.0-0.2) Prothrombin Time 11.7 SEC (11.7-14.0) Prothromb Time International Ratio 0.9 (0.8-1.1) Sodium Level 140 mmol/L (136-145) Potassium Level 4.1 mmol/L (3.5-5.1) Chloride Level 102 mmol/L (98-107) Carbon Dioxide Level 28 mmol/L (21-32) Anion Gap 10 (6-14) Blood Urea Nitrogen 14 mg/dL (7-20) Creatinine 0.8 mg/dL (0.6-1.0) Estimated GFR (Cockcroft-Gault) 76.6 BUN/Creatinine Ratio 18 (6-20) Glucose Level 172 mg/dL (70-99) Calcium Level 9.6 mg/dL (8.5-10.1) Magnesium Level 1.6 mg/dL (1.8-2.4) Total Bilirubin 0.3 mg/dL (0.2-1.0) Aspartate Amino Transf (AST/SGOT) 21 U/L (15-37) Alanine Aminotransferase (ALT/SGPT) 51 U/L (14-59) Alkaline Phosphatase 79 U/L (46-116) Creatine Kinase 96 U/L (26-192) Creatine Kinase MB (Mass) 1.0 ng/mL (0.0-3.6) Creatine Kinase MB Relative Index 1.0 % (0-4) Troponin I Quantitative < 0.017 ng/mL (0.000-0.055) < 0.017 ng/mL (0.000-0.055) TJ-Ulp-X-Type Natriuretic Peptide 91 pg/mL (0-124) Total Protein 7.4 g/dL (6.4-8.2) Albumin 3.8 g/dL (3.4-5.0) Albumin/Globulin Ratio 1.1 (1.0-1.7) Lipase 122 U/L (73-393) Thyroid Stimulating Hormone (TSH) 0.835 uIU/mL (0.358-3.74) D-Dimer (Lisset) 1.17 ug/mlFEU (0.00-0.50) Glucose (Fingerstick) 97 mg/dL (70-99) Test 01/07/19 20:00 01/07/19 20:56 01/08/19 05:00 01/08/19 07:22 Troponin I Quantitative < 0.017 ng/mL (0.000-0.055) Glucose (Fingerstick) 141 mg/dL (70-99) 148 mg/dL (70-99) Sodium Level 141 mmol/L (136-145) Potassium Level 4.2 mmol/L (3.5-5.1) Chloride Level 103 mmol/L (98-107) Carbon Dioxide Level 30 mmol/L (21-32) Anion Gap 8 (6-14) Blood Urea Nitrogen 12 mg/dL (7-20) Creatinine 0.9 mg/dL (0.6-1.0) Estimated GFR (Cockcroft-Gault) 66.8 Glucose Level 128 mg/dL (70-99) Calcium Level 9.0 mg/dL (8.5-10.1) Magnesium Level 2.3 mg/dL (1.8-2.4) Triglycerides Level 128 mg/dL (0-150) Cholesterol Level 165 mg/dL (0-200) LDL Cholesterol, Calculated 99 mg/dL (0-100) VLDL Cholesterol, Calculated 26 mg/dL (0-40) Non-HDL Cholesterol Calculated 125 mg/dL (0-129) HDL Cholesterol 40 mg/dL (40-60) Cholesterol/HDL Ratio 4.1 ASSESSMENT/PLAN ASSESSMENT/PLAN 1. Chest pain with typical features, UA 2. Accelerated HTN: now controlled 3. DM2: insulin dependent 4. DLP: LDL 99, not on statin and goal 5. Morbid obesity 6. Suspect OA 7. Elevated DDIMER: neg for VTE so far. 8. Allergy to ASA: possible angioedema when she was 7 yo as she was told. 9. Family hx of premature CAD; SCD grandfather at 48. CABG on father Recommendations 1. Plavix x1.. start on statin. continue with home ACEi 2. TTE. Will need outpt JOESPH w/u 3. Lifestyle modification 4. [facility] discussed, risks and benefits, agreeable to proceed. DIDI SILVESTRE MD 01/08/19 1459: CARDIAC CONSULT ASSESSMENT/PLAN ASSESSMENT/PLAN Patient seen and examined. Agree with SHANK STITCHER's assessment and plan. Chest pain with features concerning for unstable angina. Myocardial infarction has been ruled out. Check 2-D echo to assess LV systolic function. We will proceed with cardiac catheterization and possible angioplasty. Risks and benefits were explained and she is agreeable. Blood pressure better controlled since admission. Thank you for your consultation. SKYLA FINE APRN January 08, 2019 09:35 DIDI SILVESTRE MD January 08, 2019 14:59
--- NOTE | 2019-01-08 09:37 | CARD ---
MR#: [id number] Date of Study: 01/08/2019 Ordering Physician: SKYLA FINE, Referring Physician: TAMAR ARCE Tech: Nathalie Hidalgo [facility] APPROVED REPORT EXAM: Two-dimensional and M-mode echocardiogram with Doppler and color Doppler. Other Information Quality : Technically LimitedHR: 75bpm Rhythm : NSRTechnically limited study due to body habitus. INDICATION Chest Pain 2D DIMENSIONS RVDd2.8 (2.9-3.5cm)Left Atrium(2D)3.7 (1.6-4.0cm) IVSd0.8 (0.7-1.1cm)Aortic Root(2D)3.1 (2.0-3.7cm) LVDd5.1 (3.9-5.9cm)LVOT Diameter1.9 (1.8-2.4cm) PWd0.8 (0.7-1.1cm)LVDs3.8 (2.5-4.0cm) FS (%) 25.3 %SV62.7 ml LVEF(%)50.0 (>50%) Aortic Valve AoV Peak Tyrese.110.8cm/sAoV VTI26.7cm AO Peak GR.4.9mmHgLVOT Peak Tyrese.101.9cm/s AO Mean GR.3mmHgAVA (VMAX)2.73cm2 JOSÉ MIGUEL (VTI)2.70cm2 Mitral Valve MV E Djgsdzxy11.2cm/sMV DECEL [id number] MV A Dmkjegnx85.6cm/sE/A Ratio1.0 MV A [id number] Pulmonary Valve PV Peak Atpyawnl470.7cm/s LEFT VENTRICLE The left ventricle is normal size. There is normal left ventricular wall thickness. The left ventricu lar systolic function is normal and the ejection fraction is within normal range. The Ejection Fracti on is 50-55%. There is grossly normal LV segmental wall motion. Technically limited images. Transmitr al Doppler flow pattern is Grade I-abnormal relaxation pattern. RIGHT VENTRICLE The right ventricle is mildly to moderately dilated. There is normal right ventricular wall thickness . The right ventricular systolic function is normal. ATRIA The left atrium size is normal. The right atrium size is normal. The interatrial septum is intact wit h no evidence for an atrial septal defect or patent foramen ovale as noted on 2-D or Doppler imaging. AORTIC VALVE The aortic valve is probably trileaflet. It appears moderately calcified. Doppler and Color Flow reve aled no significant aortic regurgitation. There is no significant aortic valvular stenosis. MITRAL VALVE The mitral valve is normal in structure and function. There is no evidence of mitral valve prolapse. There is no mitral valve stenosis. Doppler and Color-flow revealed trace mitral regurgitation. TRICUSPID VALVE The tricuspid valve is normal in structure and function. Doppler and Color Flow revealed trace tricus pid regurgitation. There is no tricuspid valve prolapse or vegetation. There is no tricuspid valve st enosis. PULMONIC VALVE The pulmonic valve is not well visualized. GREAT VESSELS The aortic root is normal in size. The ascending aorta is normal in size. The IVC is normal in size a nd collapses >50% with inspiration. PERICARDIAL EFFUSION There is no evidence of significant pericardial effusion. Critical Notification Critical Value: No <Conclusion> There is grossly normal LV segmental wall motion. Technically limited images. The right ventricle is mildly to moderately dilated. Signed by : Jeyson Montague, Electronically Approved : 01/08/2019 09:37:14
[2019-01-08] MEDS ORDERED: CLOPIDOGREL BISULFATE 75 MG TABLET PO ONE (10:00)
--- NOTE | 2019-01-08 10:15 | PDOC ---
PROGRESS NOTES History of Present Illness History of Present Illness VTE Prophylaxis Ordered VTE Prophylaxis Devices: Yes VTE Pharmacological Prophylaxi: Yes Assessment/Plan Assessment/Plan A/P: Chest pain - moderate-high risk for ACS given DM2, HTN, post-menopausal, family history positive. Initial troponin and EKG negative, will trend troponin, consult cardiology. DM2 (A1c 6.9) - on metformin, januvia and toujeo. Advised SGLT-2 and GLP-1 outpatient, willl place on basal bolus plus inpatient. Morbid Obesity - counseled on weight loss, advised SGLT-2 (jardiance) and GLP1 (victoza) for her DM2 as well HTN - cont home meds, monitor Ex-smoker - 8 years quit. Will monitor Hypomagnesemia - will replace, repeat level in AM Positive D dimer - CTPA not helpful, will consider VQ scan in AM, check dopplers of LE in meantime. will place on thromboprophylaxis FEN - Cardiac ADA diet, NPO after midnight PPX - lovenox FULL CODE CVC for chest pain higher risk for ACS Vitals Vitals Vital Signs Date Time Temp Pulse Resp B/P (MAP) Pulse Ox O2 Delivery O2 Flow Rate FiO2 01/08/19 07:52 Room Air 01/08/19 07:00 97.7 82 18 118/56 (76) 97 97.7 Physical Exam General: Alert, Oriented X3, Cooperative, No acute distress Heart: Regular rate (SR), Normal S1, Normal S2, No murmurs Lungs: Clear Abdomen: Soft, No tenderness, Other (obese) Extremities: No cyanosis, Other (1+ bilateral LE pittingede) Skin: No breakdown, No significant lesion Labs LABS Technologist: Andrea Phan, RT (R) Nurse: Yvonne Augustine R.N. Procedure(s) performed: Left heart catheterization, selective coronary angiography and left ventriculography via right transradial approach Sedation Time: 23 Minutes Fluoro Time: 4.2 Minutes Dose: 41.97 Gycm2 Contrast: 96mL [id number] INDICATION The indication(s) include : unstable angina . CSHA Clinical Frailty Scale [facility] Clinical Frailty Scale: Well Heart Failure Heart Failure: No PROCEDURE NARRATIVE After explaining the risks, benefits and alternative options, informed consent was obtained from patient. Patient was brought to the cardiac Tax Map Technician and right wrist was prepped and draped in the usual fashion after confirming a positive modified Flex's test. Arterial access was obtained in the right radial artery and a 6 [place] Irish sheath was inserted. 6 Northern Irish Sanchez and 6 Northern Irish JL 3.5 catheters were used to perform selective angiography of the right and left coronary arteries. 6 Northern Irish pigtail catheter was used to perform left ventriculography. Patient tolerated the procedure well. Hemostasis was achieved using TR band. There were no immediate complications. The following findings were noted. FINDINGS 1. Hemodynamics: Left ventricular end-diastolic pressure of 14 mmHg. No pullback gradient across the aortic valve. 2. Left ventriculography: Normal left ventricle systolic function with ejection fraction estimated at 60%. No significant mitral regurgitation seen. 3. Coronary angiography: a. The left main coronary artery arose from the left sinus of Valsalva, gave rise to the left anterior descending and left circumflex arteries and did not show any significant stenosis. b. The left anterior descending artery did not show any significant stenosis. c. The left circumflex artery did not show any significant stenosis. d. The right coronary artery was a large and dominant vessel arising from the right sinus of Valsalva that did not show any significant stenosis. Conclusion 1. No significant coronary artery disease 2. Normal left ventricle systolic function with ejection fraction estimated at 60% Signed by : Easton Larsen, Electronically Approved : 01/08/2019 15:07:57 Laboratory Tests Test 01/07/19 11:40 01/07/19 11:41 01/07/19 16:35 01/07/19 16:55 White Blood Count 7.9 x10^3/uL (4.0-11.0) Red Blood Count 4.29 x10^6/uL (3.50-5.40) Hemoglobin 12.4 g/dL (12.0-15.5) Hematocrit 37.6 % (36.0-47.0) Mean Corpuscular Volume 88 fL (79-100) Mean Corpuscular Hemoglobin 29 pg (25-35) Mean Corpuscular Hemoglobin Concent 33 g/dL (31-37) Red Cell Distribution Width 14.1 % (11.5-14.5) Platelet Count 280 x10^3/uL (140-400) Neutrophils (%) (Auto) 59 % (31-73) Lymphocytes (%) (Auto) 30 % (24-48) Monocytes (%) (Auto) 8 % (0-9) Eosinophils (%) (Auto) 3 % (0-3) Basophils (%) (Auto) 1 % (0-3) Neutrophils # (Auto) 4.6 x10^3uL (1.8-7.7) Lymphocytes # (Auto) 2.4 x10^3/uL (1.0-4.8) Monocytes # (Auto) 0.6 x10^3/uL (0.0-1.1) Eosinophils # (Auto) 0.2 x10^3/uL (0.0-0.7) Basophils # (Auto) 0.0 x10^3/uL (0.0-0.2) Prothrombin Time 11.7 SEC (11.7-14.0) Prothromb Time International Ratio 0.9 (0.8-1.1) Sodium Level 140 mmol/L (136-145) Potassium Level 4.1 mmol/L (3.5-5.1) Chloride Level 102 mmol/L (98-107) Carbon Dioxide Level 28 mmol/L (21-32) Anion Gap 10 (6-14) Blood Urea Nitrogen 14 mg/dL (7-20) Creatinine 0.8 mg/dL (0.6-1.0) Estimated GFR (Cockcroft-Gault) 76.6 BUN/Creatinine Ratio 18 (6-20) Glucose Level 172 mg/dL (70-99) Calcium Level 9.6 mg/dL (8.5-10.1) Magnesium Level 1.6 mg/dL (1.8-2.4) Total Bilirubin 0.3 mg/dL (0.2-1.0) Aspartate Amino Transf (AST/SGOT) 21 U/L (15-37) Alanine Aminotransferase (ALT/SGPT) 51 U/L (14-59) Alkaline Phosphatase 79 U/L (46-116) Creatine Kinase 96 U/L (26-192) Creatine Kinase MB (Mass) 1.0 ng/mL (0.0-3.6) Creatine Kinase MB Relative Index 1.0 % (0-4) Troponin I Quantitative < 0.017 ng/mL (0.000-0.055) < 0.017 ng/mL (0.000-0.055) DN-Zry-Z-Type Natriuretic Peptide 91 pg/mL (0-124) Total Protein 7.4 g/dL (6.4-8.2) Albumin 3.8 g/dL (3.4-5.0) Albumin/Globulin Ratio 1.1 (1.0-1.7) Lipase 122 U/L (73-393) Thyroid Stimulating Hormone (TSH) 0.835 uIU/mL (0.358-3.74) D-Dimer (Lisset) 1.17 ug/mlFEU (0.00-0.50) Glucose (Fingerstick) 97 mg/dL (70-99) Test 01/07/19 20:00 01/07/19 20:56 01/08/19 05:00 01/08/19 07:22 Troponin I Quantitative < 0.017 ng/mL (0.000-0.055) Glucose (Fingerstick) 141 mg/dL (70-99) 148 mg/dL (70-99) Sodium Level 141 mmol/L (136-145) Potassium Level 4.2 mmol/L (3.5-5.1) Chloride Level 103 mmol/L (98-107) Carbon Dioxide Level 30 mmol/L (21-32) Anion Gap 8 (6-14) Blood Urea Nitrogen 12 mg/dL (7-20) Creatinine 0.9 mg/dL (0.6-1.0) Estimated GFR (Cockcroft-Gault) 66.8 Glucose Level 128 mg/dL (70-99) Calcium Level 9.0 mg/dL (8.5-10.1) Magnesium Level 2.3 mg/dL (1.8-2.4) Triglycerides Level 128 mg/dL (0-150) Cholesterol Level 165 mg/dL (0-200) LDL Cholesterol, Calculated 99 mg/dL (0-100) VLDL Cholesterol, Calculated 26 mg/dL (0-40) Non-HDL Cholesterol Calculated 125 mg/dL (0-129) HDL Cholesterol 40 mg/dL (40-60) Cholesterol/HDL Ratio 4.1 Assessment and Plan Assessmemt and Plan Problems Medical Problems: (1) Chest pain Status: Acute (2) Elevated d-dimer Status: Acute (3) Hyperglycemia Status: Acute Comment Review of Relevant I have reviewed the following items monique (where applicable) has been applied. Labs Laboratory Tests Test 01/07/19 11:40 01/07/19 11:41 01/07/19 16:35 01/07/19 16:55 White Blood Count 7.9 x10^3/uL (4.0-11.0) Red Blood Count 4.29 x10^6/uL (3.50-5.40) Hemoglobin 12.4 g/dL (12.0-15.5) Hematocrit 37.6 % (36.0-47.0) Mean Corpuscular Volume 88 fL (79-100) Mean Corpuscular Hemoglobin 29 pg (25-35) Mean Corpuscular Hemoglobin Concent 33 g/dL (31-37) Red Cell Distribution Width 14.1 % (11.5-14.5) Platelet Count 280 x10^3/uL (140-400) Neutrophils (%) (Auto) 59 % (31-73) Lymphocytes (%) (Auto) 30 % (24-48) Monocytes (%) (Auto) 8 % (0-9) Eosinophils (%) (Auto) 3 % (0-3) Basophils (%) (Auto) 1 % (0-3) Neutrophils # (Auto) 4.6 x10^3uL (1.8-7.7) Lymphocytes # (Auto) 2.4 x10^3/uL (1.0-4.8) Monocytes # (Auto) 0.6 x10^3/uL (0.0-1.1) Eosinophils # (Auto) 0.2 x10^3/uL (0.0-0.7) Basophils # (Auto) 0.0 x10^3/uL (0.0-0.2) Prothrombin Time 11.7 SEC (11.7-14.0) Prothromb Time International Ratio 0.9 (0.8-1.1) Sodium Level 140 mmol/L (136-145) Potassium Level 4.1 mmol/L (3.5-5.1) Chloride Level 102 mmol/L (98-107) Carbon Dioxide Level 28 mmol/L (21-32) Anion Gap 10 (6-14) Blood Urea Nitrogen 14 mg/dL (7-20) Creatinine 0.8 mg/dL (0.6-1.0) Estimated GFR (Cockcroft-Gault) 76.6 BUN/Creatinine Ratio 18 (6-20) Glucose Level 172 mg/dL (70-99) Calcium Level 9.6 mg/dL (8.5-10.1) Magnesium Level 1.6 mg/dL (1.8-2.4) Total Bilirubin 0.3 mg/dL (0.2-1.0) Aspartate Amino Transf (AST/SGOT) 21 U/L (15-37) Alanine Aminotransferase (ALT/SGPT) 51 U/L (14-59) Alkaline Phosphatase 79 U/L (46-116) Creatine Kinase 96 U/L (26-192) Creatine Kinase MB (Mass) 1.0 ng/mL (0.0-3.6) Creatine Kinase MB Relative Index 1.0 % (0-4) Troponin I Quantitative < 0.017 ng/mL (0.000-0.055) < 0.017 ng/mL (0.000-0.055) UD-Wkf-K-Type Natriuretic Peptide 91 pg/mL (0-124) Total Protein 7.4 g/dL (6.4-8.2) Albumin 3.8 g/dL (3.4-5.0) Albumin/Globulin Ratio 1.1 (1.0-1.7) Lipase 122 U/L (73-393) Thyroid Stimulating Hormone (TSH) 0.835 uIU/mL (0.358-3.74) D-Dimer (Lisset) 1.17 ug/mlFEU (0.00-0.50) Glucose (Fingerstick) 97 mg/dL (70-99) Test 01/07/19 20:00 01/07/19 20:56 01/08/19 05:00 01/08/19 07:22 Troponin I Quantitative < 0.017 ng/mL (0.000-0.055) Glucose (Fingerstick) 141 mg/dL (70-99) 148 mg/dL (70-99) Sodium Level 141 mmol/L (136-145) Potassium Level 4.2 mmol/L (3.5-5.1) Chloride Level 103 mmol/L (98-107) Carbon Dioxide Level 30 mmol/L (21-32) Anion Gap 8 (6-14) Blood Urea Nitrogen 12 mg/dL (7-20) Creatinine 0.9 mg/dL (0.6-1.0) Estimated GFR (Cockcroft-Gault) 66.8 Glucose Level 128 mg/dL (70-99) Calcium Level 9.0 mg/dL (8.5-10.1) Magnesium Level 2.3 mg/dL (1.8-2.4) Triglycerides Level 128 mg/dL (0-150) Cholesterol Level 165 mg/dL (0-200) LDL Cholesterol, Calculated 99 mg/dL (0-100) VLDL Cholesterol, Calculated 26 mg/dL (0-40) Non-HDL Cholesterol Calculated 125 mg/dL (0-129) HDL Cholesterol 40 mg/dL (40-60) Cholesterol/HDL Ratio 4.1 Laboratory Tests Test 01/07/19 11:40 01/07/19 11:41 01/07/19 16:35 01/07/19 16:55 White Blood Count 7.9 x10^3/uL (4.0-11.0) Red Blood Count 4.29 x10^6/uL (3.50-5.40) Hemoglobin 12.4 g/dL (12.0-15.5) Hematocrit 37.6 % (36.0-47.0) Mean Corpuscular Volume 88 fL (79-100) Mean Corpuscular Hemoglobin 29 pg (25-35) Mean Corpuscular Hemoglobin Concent 33 g/dL (31-37) Red Cell Distribution Width 14.1 % (11.5-14.5) Platelet Count 280 x10^3/uL (140-400) Neutrophils (%) (Auto) 59 % (31-73) Lymphocytes (%) (Auto) 30 % (24-48) Monocytes (%) (Auto) 8 % (0-9) Eosinophils (%) (Auto) 3 % (0-3) Basophils (%) (Auto) 1 % (0-3) Neutrophils # (Auto) 4.6 x10^3uL (1.8-7.7) Lymphocytes # (Auto) 2.4 x10^3/uL (1.0-4.8) Monocytes # (Auto) 0.6 x10^3/uL (0.0-1.1) Eosinophils # (Auto) 0.2 x10^3/uL (0.0-0.7) Basophils # (Auto) 0.0 x10^3/uL (0.0-0.2) Prothrombin Time 11.7 SEC (11.7-14.0) Prothromb Time International Ratio 0.9 (0.8-1.1) Sodium Level 140 mmol/L (136-145) Potassium Level 4.1 mmol/L (3.5-5.1) Chloride Level 102 mmol/L (98-107) Carbon Dioxide Level 28 mmol/L (21-32) Anion Gap 10 (6-14) Blood Urea Nitrogen 14 mg/dL (7-20) Creatinine 0.8 mg/dL (0.6-1.0) Estimated GFR (Cockcroft-Gault) 76.6 BUN/Creatinine Ratio 18 (6-20) Glucose Level 172 mg/dL (70-99) Calcium Level 9.6 mg/dL (8.5-10.1) Magnesium Level 1.6 mg/dL (1.8-2.4) Total Bilirubin 0.3 mg/dL (0.2-1.0) Aspartate Amino Transf (AST/SGOT) 21 U/L (15-37) Alanine Aminotransferase (ALT/SGPT) 51 U/L (14-59) Alkaline Phosphatase 79 U/L (46-116) Creatine Kinase 96 U/L (26-192) Creatine Kinase MB (Mass) 1.0 ng/mL (0.0-3.6) Creatine Kinase MB Relative Index 1.0 % (0-4) Troponin I Quantitative < 0.017 ng/mL (0.000-0.055) < 0.017 ng/mL (0.000-0.055) FR-Klx-S-Type Natriuretic Peptide 91 pg/mL (0-124) Total Protein 7.4 g/dL (6.4-8.2) Albumin 3.8 g/dL (3.4-5.0) Albumin/Globulin Ratio 1.1 (1.0-1.7) Lipase 122 U/L (73-393) Thyroid Stimulating Hormone (TSH) 0.835 uIU/mL (0.358-3.74) D-Dimer (Lisset) 1.17 ug/mlFEU (0.00-0.50) Glucose (Fingerstick) 97 mg/dL (70-99) Test 01/07/19 20:00 01/07/19 20:56 01/08/19 05:00 01/08/19 07:22 Troponin I Quantitative < 0.017 ng/mL (0.000-0.055) Glucose (Fingerstick) 141 mg/dL (70-99) 148 mg/dL (70-99) Sodium Level 141 mmol/L (136-145) Potassium Level 4.2 mmol/L (3.5-5.1) Chloride Level 103 mmol/L (98-107) Carbon Dioxide Level 30 mmol/L (21-32) Anion Gap 8 (6-14) Blood Urea Nitrogen 12 mg/dL (7-20) Creatinine 0.9 mg/dL (0.6-1.0) Estimated GFR (Cockcroft-Gault) 66.8 Glucose Level 128 mg/dL (70-99) Calcium Level 9.0 mg/dL (8.5-10.1) Magnesium Level 2.3 mg/dL (1.8-2.4) Triglycerides Level 128 mg/dL (0-150) Cholesterol Level 165 mg/dL (0-200) LDL Cholesterol, Calculated 99 mg/dL (0-100) VLDL Cholesterol, Calculated 26 mg/dL (0-40) Non-HDL Cholesterol Calculated 125 mg/dL (0-129) HDL Cholesterol 40 mg/dL (40-60) Cholesterol/HDL Ratio 4.1 Medications Current Medications Aspirin (Lacey Aspirin) 325 mg 1X ONCE PO ; Start 01/07/19 at 12:00; Stop 01/07/19 at 19:59; Status DC Sodium Chloride 1,000 ml @ 1,000 mls/hr 1X ONCE IV Last administered on 01/07/19at 12:20; Start 01/07/19 at 12:00; Stop 01/07/19 at 12:59; Status DC Fentanyl Citrate (Fentanyl 2ml Vial) 50 mcg 1X ONCE IV Last administered on 01/07/19at 13:47; Start 01/07/19 at 14:00; Stop 01/07/19 at 14:01; Status DC Ondansetron HCl (Zofran) 4 mg 1X ONCE IV Last administered on 01/07/19at 13:46; Start 01/07/19 at 14:00; Stop 01/07/19 at 14:01; Status DC Fentanyl Citrate (Fentanyl 2ml Vial) 100 mcg [facility] ONCE .ROUTE ; Start 01/07/19 at 13:42; Stop 01/07/19 at 13:43; Status DC Ondansetron HCl (Zofran) 4 mg PRN Q8HRS PRN IV NAUSEA/VOMITING; Start 01/07/19 at 14:00; Stop 01/09/19 at 13:58 Fentanyl Citrate (Fentanyl 2ml Vial) 50 mcg PRN Q2HR PRN IV PAIN; Start 01/07/19 at 14:00; Stop 01/08/19 at 13:59 Insulin Human Lispro (HumaLOG) 0-5 UNITS TIDWMEALS SQ ; Start 01/07/19 at 17:00; Stop 01/07/19 at 17:13; Status DC Dextrose (Dextrose 50%-Water Syringe) 12.5 gm PRN Q15MIN PRN IV SEE COMMENTS; Start 01/07/19 at 14:00; Stop 01/07/19 at 17:15; Status DC Iohexol (Omnipaque 350 Mg/ml) 100 ml 1X ONCE IV Last administered on 01/07/19at 14:07; Start 01/07/19 at 14:30; Stop 01/07/19 at 14:31; Status DC Info (CONTRAST GIVEN -- Rx MONITORING) 1 each PRN DAILY PRN MC SEE COMMENTS; Start 01/07/19 at 14:15; Stop 01/09/19 at 14:14 Labetalol HCl (Normodyne Iv Push) 20 mg PRN Q2HR PRN IVP HYPERTENSION Last administered on 01/07/19at 16:41; Start 01/07/19 at 16:30 Non-Formulary Medication (Lisinopril/ Hydrochlorothiazide (Lisinopril-Hctz 10- 12.5 Mg Tab)) 2 tab DAILY PO ; Start 01/08/19 at 09:00; Status UNV Atorvastatin Calcium (Lipitor) 10 mg QHS PO Last administered on 01/07/19at 22:10; Start 01/07/19 at 21:00 Insulin Glargine (Lantus) 5 units QHS SQ Last administered on 01/07/19at 22:19; Start 01/07/19 at 21:00 Insulin Human Lispro (HumaLOG) 0-7 UNITS TIDWMEALS SQ ; Start 01/07/19 at 17:30 Dextrose (Dextrose 50%-Water Syringe) 12.5 gm PRN Q15MIN PRN IV SEE COMMENTS; Start 01/07/19 at 17:15 Aspirin (Children'S Aspirin) 81 mg DAILY PO ; Start 01/08/19 at 09:00; Stop 01/08/19 at 09:00; Status DC Lisinopril (Prinivil) 20 mg DAILY PO ; Start 01/07/19 at 17:30 Hydrochlorothiazide (Hydrodiuril) 25 mg DAILY PO ; Start 01/07/19 at 17:30 Magnesium Sulfate/ Dextrose 100 ml @ 25 mls/hr 1X ONCE IV Last administered on 01/07/19at 22:12; Start 01/07/19 at 20:00; Stop 01/07/19 at 23:59; Status DC Nitroglycerin (Nitrostat) 0.4 mg PRN Q5MIN PRN SL CHEST PAIN; Start 01/07/19 at 20:00 Enoxaparin Sodium (Lovenox 40mg Syringe) 40 mg Q24H SQ Last administered on 01/07/19at 22:11; Start 01/07/19 at 20:15 Clopidogrel Bisulfate (Plavix) 75 mg 1X ONCE PO Last administered on 01/08/19at 09:54; Start 01/08/19 at 10:00; Stop 01/08/19 at 10:01; Status DC Active Scripts Active Diclofenac Sodium 50 Mg Tablet.dr 1 Tab PO BID Lipitor (Atorvastatin Calcium) 10 Mg Tablet 1 Tab PO QHS Aspirin 81 Mg Tab.chew 1 Tab PO DAILY Reported Vitamin D3 (Cholecalciferol (Vitamin D3)) 2,000 Unit Capsule 2,000 Unit PO DAILY Januvia (Sitagliptin Phosphate) 100 Mg Tablet 1 Tab PO DAILY Lisinopril-Hctz 10-12.5 Mg Tab (Lisinopril/Hydrochlorothiazide) 1 Each Tablet 2 Tab PO DAILY Metformin Hcl 500 Mg Tablet 2 Tab PO BID Vitals/I & O Vital Sign - Last 24 Hours 01/07/19 01/07/19 01/07/19 01/07/19 11:30 12:00 12:31 13:01 Temp 98.9 98.9 Pulse 87 88 84 78 Resp 20 20 20 20 B/P (MAP) 193/61 (105) 179/82 (114) 163/84 (110) 144/79 (100) Pulse Ox 99 99 98 97 O2 Delivery Room Air Room Air Room Air Room Air 01/07/19 01/07/19 01/07/19 01/07/19 13:31 14:00 14:17 14:30 Pulse 78 82 80 Resp 20 20 20 B/P (MAP) 151/83 (105) 154/83 (106) 162/88 (112) Pulse Ox 98 94 100 O2 Delivery Room Air Room Air Room Air Room Air 01/07/19 01/07/19 01/07/19 01/07/19 15:00 15:30 16:20 16:41 Temp 98.2 98.2 Pulse 80 78 91 91 Resp 20 20 18 B/P (MAP) 148/83 (104) 144/82 (102) 208/98 (134) 208/98 Pulse Ox 99 98 98 O2 Delivery Room Air Room Air Room Air 01/07/19 01/07/19 01/07/19 01/07/19 17:16 17:41 19:20 19:56 Temp 98.0 98.0 Pulse 82 88 Resp 18 B/P (MAP) 142/63 (89) 136/66 (89) Pulse Ox 99 O2 Delivery Room Air Room Air Room Air 01/07/19 01/08/19 01/08/19 01/08/19 22:53 03:05 07:00 07:52 Temp 97.9 98.1 97.7 97.9 98.1 97.7 Pulse 83 83 82 Resp 20 18 18 B/P (MAP) 137/73 (94) 117/62 (80) 118/56 (76) Pulse Ox 97 96 97 O2 Delivery Room Air Room Air Room Air Room Air Intake and Output 01/07/19 01/07/19 01/08/19 15:00 23:00 07:00 Intake Total 1000 ml 1200 ml 1000 ml Balance 1000 ml 1200 ml 1000 ml TAMAR ARCE MD January 08, 2019 10:15
--- NOTE | 2019-01-08 10:33 | NUR ---
SW reviewed pt's medical chart and evaluated for potential dc needs. Pt is from home with daughter and was admitted for chest pain. Pt is not on O2 and PT/OT has not been ordered. SW will continue to follow and be available if dc planning is required.
[2019-01-08] MEDS ORDERED: LIDOCAINE 1% PF 2 ML VIAL. ONE (13:56)
[2019-01-08] MEDS ORDERED: IOHEXOL 300 MG/ML 100ML VIAL. ONE (13:56)
[2019-01-08] MEDS ORDERED: VERAPAMIL 5 MG/2 ML VIAL. ONE (14:06)
[2019-01-08] MEDS ORDERED: HEPARIN for IV BOLUS 10,000 UNIT/10 ML VIAL. ONE (14:06)
[2019-01-08] MEDS ORDERED: NITROGLYCERIN 200 MCG/2 ML SYRINGE FOR CATH/VASC LAB. ONE (14:06)
[2019-01-08] MEDS ORDERED: MIDAZOLAM HCL/PF 2 MG/2 ML VIAL. ONE (14:06)
[2019-01-08] MEDS ORDERED: fentaNYL PF VIAL 100 MCG/2 ML VIAL ONE (14:06)
--- NOTE | 2019-01-08 14:56 | PDOC ---
MODERATE SEDATION ASSESSMENT RISKS/ALTERNATIVES Risks/Alternatives Risks and alternatives of this type of sedation and procedure discussed with: RISK/ALTERNATIVES: Patient H & P ON CHART H & P H & P on chart and reviewed for co-morbid conditions and appropriate labs. H&P ON CHART: Yes STATUS PREG STATUS ASSESSED: N/A MEDS/ALLERGIES REVIEWED Meds/Allergies Reviewed Medications and Allergies including time and route of recently administered narcotics and sedatives. MEDS/ALLERGIES REVIEWED: Yes ASA RATING ASA RATING: II AIRWAY ASSESSMENT Airway Assessment Airway patency, oral function limitations, presence of caps, crowns, dentures, partials, and ability to extend neck assessed. AIRWAY ASSESSMENT: Yes MALLAMPATI SCORE MALLAMPATI SCORE: II PRE-SEDATION ASSESSMENT PRE-SEDATION ASSESSMENT: Yes DIDI SILVESTRE MD January 08, 2019 14:56
[2019-01-08] MEDS ORDERED: VERAPAMIL 5 MG/2 ML VIAL. IART ONE (15:00)
[2019-01-08] MEDS ORDERED: NITROGLYCERIN 200 MCG/2 ML SYRINGE FOR CATH/VASC LAB. IART ONE (15:00)
[2019-01-08] MEDS ORDERED: IOHEXOL 300 MG/ML 100ML VIAL. IART ONE (15:00)
[2019-01-08] MEDS ORDERED: LIDOCAINE 1% PF 2 ML VIAL. INJ ONE (15:00)
[2019-01-08] MEDS ORDERED: NITROGLYCERIN SUBLINGUAL 0.4 MG BOTTLE OF 25. SL PRN (15:00)
[2019-01-08] MEDS ORDERED: MIDAZOLAM HCL/PF 2 MG/2 ML VIAL. IV ONE (15:00)
[2019-01-08] MEDS ORDERED: fentaNYL PF VIAL 100 MCG/2 ML VIAL IV ONE (15:00)
[2019-01-08] MEDS ORDERED: HEPARIN for IV BOLUS 10,000 UNIT/10 ML VIAL. IART ONE (15:00)
--- NOTE | 2019-01-08 15:08 | CARD ---
MR#: [id number] Date of Study: 01/08/2019 Ordering Physician: SKYLA FINE, Referring Physician: TAMAR ARCE, Tech: RT Ivone (R) APPROVED REPORT Technologist: RT Ivone (R) Nurse: Yvonne Augustine R.N. Procedure(s) performed: Left heart catheterization, selective coronary angiography and left ventricul ography via right transradial approach Sedation Time: 23 Minutes Fluoro Time: 4.2 Minutes Dose: 41.97 Gycm2 Contrast: 96mL [id number] INDICATION The indication(s) include : unstable angina . CSHA Clinical Frailty Scale CSHA Clinical Frailty Scale: Well Heart Failure Heart Failure: No PROCEDURE NARRATIVE After explaining the risks, benefits and alternative options, informed consent was obtained from lona ent. Patient was brought to the cardiac Poultry Husbandry Teacher and right wrist was prepped and draped in the usual fashion after confirming a positive modified Flex's test. Arterial access was obtained in the rig t radial artery and a 6 Jordanian sheath was inserted. 6 Jordanian Sanchez and 6 Jordanian JL 3.5 catheters we re used to perform selective angiography of the right and left coronary arteries. 6 [place]ian pigtail c atheter was used to perform left ventriculography. Patient tolerated the procedure well. Hemostasis was achieved using TR band. There were no immediate complications. The following findings were not ed. FINDINGS 1. Hemodynamics: Left ventricular end-diastolic pressure of 14 mmHg. No pullback gradient across th e aortic valve. 2. Left ventriculography: Normal left ventricle systolic function with ejection fraction estimated at 60%. No significant mitral regurgitation seen. 3. Coronary angiography: a. The left main coronary artery arose from the left sinus of Valsalva, gave rise to the left anteri or descending and left circumflex arteries and did not show any significant stenosis. b. The left anterior descending artery did not show any significant stenosis. c. The left circumflex artery did not show any significant stenosis. d. The right coronary artery was a large and dominant vessel arising from the right sinus of Valsalv a that did not show any significant stenosis. Conclusion 1. No significant coronary artery disease 2. Normal left ventricle systolic function with ejection fraction estimated at 60% Signed by : Easton Larsen, Electronically Approved : 01/08/2019 15:07:57
[2019-01-08] MEDS: LISINOPRIL 20 MG TABLET PO SCH (15:09)
[2019-01-08] MEDS: IV 1/2 NORMAL SALINE 1,000 ML IV SCH ×2 (15:09→17:00)
[2019-01-08] MEDS: ATORVASTATIN CALCIUM 10 MG TABLET. PO SCH (21:14)
[2019-01-08] MEDS: ENOXAPARIN 40 MG/0.4 ML SYRINGE. SQ SCH (21:15)
[2019-01-08] MEDS: INSULIN GLARGINE 300 UNITS/3 ML INSULN.PEN. SQ SCH (21:21)
[2019-01-09 03:15] VITALS: BP 112/58
[2019-01-09 07:00] VITALS: BP 138/80
[2019-01-09] MEDS: INSULIN LISPRO 300 UNITS/3 ML INSULN.PEN. SQ SCH ×2 (08:00→12:59)
[2019-01-09] MEDS: LISINOPRIL 20 MG TABLET PO SCH (08:41)
[2019-01-09] MEDS: hydroCHLOROthiazide 25 MG TABLET PO SCH (08:41)
--- NOTE | 2019-01-09 10:09 | PDOC ---
PROGRESS NOTES History of Present Illness History of Present Illness VTE Prophylaxis Ordered VTE Prophylaxis Devices: Yes VTE Pharmacological Prophylaxi: Yes discharge dx chest pain nl cath Assessment/Plan A/P: Chest pain - moderate-high risk for ACS given DM2, HTN, post-menopausal, family history positive. Initial troponin and EKG negative, will trend troponin, consult cardiology. DM2 (A1c 6.9) - on metformin, januvia and toujeo. Advised SGLT-2 and GLP-1 outpatient, willl place on basal bolus plus inpatient. Morbid Obesity - counseled on weight loss, advised SGLT-2 (jardiance) and GLP1 (victoza) for her DM2 as well HTN - cont home meds, monitor Ex-smoker - 8 years quit. Will monitor Hypomagnesemia - will replace, repeat level in AM Positive D dimer - CTPA not helpful, will consider VQ scan in AM, check dopplers of LE in meantime. will place on thromboprophylaxis FEN - Cardiac ADA diet, NPO after midnight PPX - lovenox FULL CODE CVC for chest pain higher risk for ACS home today 01/09 d/c planning 23 min Vitals Vitals Vital Signs Date Time Temp Pulse Resp B/P (MAP) Pulse Ox O2 Delivery O2 Flow Rate FiO2 01/09/19 08:41 81 143/80 01/09/19 07:00 97.6 18 98 Room Air 97.6 Physical Exam General: Alert, Oriented X3, Cooperative, No acute distress Heart: Regular rate (SR), Normal S1, Normal S2, No murmurs Lungs: Clear Abdomen: Normal bowel sounds, Soft, No tenderness, Other (obese) Extremities: No clubbing, No cyanosis, Other (1+ bilateral LE pittingede) Skin: No breakdown, No significant lesion Labs LABS Laboratory Tests Test 01/08/19 11:31 01/08/19 16:21 01/08/19 20:47 01/09/19 07:47 Glucose (Fingerstick) 137 mg/dL (70-99) 149 mg/dL (70-99) 181 mg/dL (70-99) 146 mg/dL (70-99) Assessment and Plan Assessmemt and Plan Problems Medical Problems: (1) Chest pain Status: Acute (2) Elevated d-dimer Status: Acute (3) Hyperglycemia Status: Acute Comment Review of Relevant I have reviewed the following items monique (where applicable) has been applied. Labs Laboratory Tests Test 01/07/19 11:40 01/07/19 11:41 01/07/19 16:35 01/07/19 16:55 White Blood Count 7.9 x10^3/uL (4.0-11.0) Red Blood Count 4.29 x10^6/uL (3.50-5.40) Hemoglobin 12.4 g/dL (12.0-15.5) Hematocrit 37.6 % (36.0-47.0) Mean Corpuscular Volume 88 fL (79-100) Mean Corpuscular Hemoglobin 29 pg (25-35) Mean Corpuscular Hemoglobin Concent 33 g/dL (31-37) Red Cell Distribution Width 14.1 % (11.5-14.5) Platelet Count 280 x10^3/uL (140-400) Neutrophils (%) (Auto) 59 % (31-73) Lymphocytes (%) (Auto) 30 % (24-48) Monocytes (%) (Auto) 8 % (0-9) Eosinophils (%) (Auto) 3 % (0-3) Basophils (%) (Auto) 1 % (0-3) Neutrophils # (Auto) 4.6 x10^3uL (1.8-7.7) Lymphocytes # (Auto) 2.4 x10^3/uL (1.0-4.8) Monocytes # (Auto) 0.6 x10^3/uL (0.0-1.1) Eosinophils # (Auto) 0.2 x10^3/uL (0.0-0.7) Basophils # (Auto) 0.0 x10^3/uL (0.0-0.2) Prothrombin Time 11.7 SEC (11.7-14.0) Prothromb Time International Ratio 0.9 (0.8-1.1) Sodium Level 140 mmol/L (136-145) Potassium Level 4.1 mmol/L (3.5-5.1) Chloride Level 102 mmol/L (98-107) Carbon Dioxide Level 28 mmol/L (21-32) Anion Gap 10 (6-14) Blood Urea Nitrogen 14 mg/dL (7-20) Creatinine 0.8 mg/dL (0.6-1.0) Estimated GFR (Cockcroft-Gault) 76.6 BUN/Creatinine Ratio 18 (6-20) Glucose Level 172 mg/dL (70-99) Calcium Level 9.6 mg/dL (8.5-10.1) Magnesium Level 1.6 mg/dL (1.8-2.4) Total Bilirubin 0.3 mg/dL (0.2-1.0) Aspartate Amino Transf (AST/SGOT) 21 U/L (15-37) Alanine Aminotransferase (ALT/SGPT) 51 U/L (14-59) Alkaline Phosphatase 79 U/L (46-116) Creatine Kinase 96 U/L (26-192) Creatine Kinase MB (Mass) 1.0 ng/mL (0.0-3.6) Creatine Kinase MB Relative Index 1.0 % (0-4) Troponin I Quantitative < 0.017 ng/mL (0.000-0.055) < 0.017 ng/mL (0.000-0.055) EH-Zpg-[id number]-Type Natriuretic Peptide 91 pg/mL (0-124) Total Protein 7.4 g/dL (6.4-8.2) Albumin 3.8 g/dL (3.4-5.0) Albumin/Globulin Ratio 1.1 (1.0-1.7) Lipase 122 U/L (73-393) Thyroid Stimulating Hormone (TSH) 0.835 uIU/mL (0.358-3.74) D-Dimer (Lisset) 1.17 ug/mlFEU (0.00-0.50) Glucose (Fingerstick) 97 mg/dL (70-99) Test 01/07/19 20:00 01/07/19 20:56 01/08/19 05:00 01/08/19 07:22 Troponin I Quantitative < 0.017 ng/mL (0.000-0.055) Glucose (Fingerstick) 141 mg/dL (70-99) 148 mg/dL (70-99) Sodium Level 141 mmol/L (136-145) Potassium Level 4.2 mmol/L (3.5-5.1) Chloride Level 103 mmol/L (98-107) Carbon Dioxide Level 30 mmol/L (21-32) Anion Gap 8 (6-14) Blood Urea Nitrogen 12 mg/dL (7-20) Creatinine 0.9 mg/dL (0.6-1.0) Estimated GFR (Cockcroft-Gault) 66.8 Glucose Level 128 mg/dL (70-99) Calcium Level 9.0 mg/dL (8.5-10.1) Magnesium Level 2.3 mg/dL (1.8-2.4) Triglycerides Level 128 mg/dL (0-150) Cholesterol Level 165 mg/dL (0-200) LDL Cholesterol, Calculated 99 mg/dL (0-100) VLDL Cholesterol, Calculated 26 mg/dL (0-40) Non-HDL Cholesterol Calculated 125 mg/dL (0-129) HDL Cholesterol 40 mg/dL (40-60) Cholesterol/HDL Ratio 4.1 Test 01/08/19 11:31 01/08/19 16:21 01/08/19 20:47 01/09/19 07:47 Glucose (Fingerstick) 137 mg/dL (70-99) 149 mg/dL (70-99) 181 mg/dL (70-99) 146 mg/dL (70-99) Laboratory Tests Test 01/08/19 11:31 01/08/19 16:21 01/08/19 20:47 01/09/19 07:47 Glucose (Fingerstick) 137 mg/dL (70-99) 149 mg/dL (70-99) 181 mg/dL (70-99) 146 mg/dL (70-99) Medications Current Medications Aspirin (Lacey Aspirin) 325 mg 1X ONCE PO ; Start 01/07/19 at 12:00; Stop 01/07/19 at 19:59; Status DC Sodium Chloride 1,000 ml @ 1,000 mls/hr 1X ONCE IV Last administered on 01/07/19at 12:20; Start 01/07/19 at 12:00; Stop 01/07/19 at 12:59; Status DC Fentanyl Citrate (Fentanyl 2ml Vial) 50 mcg 1X ONCE IV Last administered on at 13:47; Start 01/07/19 at 14:00; Stop 01/07/19 at 14:01; Status DC Ondansetron HCl (Zofran) 4 mg 1X ONCE IV Last administered on 01/07/19at 13:46; Start 01/07/19 at 14:00; Stop 01/07/19 at 14:01; Status DC Fentanyl Citrate (Fentanyl 2ml Vial) 100 mcg STK-MED ONCE .ROUTE ; Start 01/07/19 at 13:42; Stop 01/07/19 at 13:43; Status DC Ondansetron HCl (Zofran) 4 mg PRN Q8HRS PRN IV NAUSEA/VOMITING; Start 01/07/19 at 14:00; Stop 01/09/19 at 13:58 Fentanyl Citrate (Fentanyl 2ml Vial) 50 mcg PRN Q2HR PRN IV PAIN; Start 01/07/19 at 14:00; Stop 01/08/19 at 13:59; Status DC Insulin Human Lispro (HumaLOG) 0-5 UNITS TIDWMEALS SQ ; Start 01/07/19 at 17:00; Stop 01/07/19 at 17:13; Status DC Dextrose (Dextrose 50%-Water Syringe) 12.5 gm PRN Q15MIN PRN IV SEE COMMENTS; Start 01/07/19 at 14:00; Stop 01/07/19 at 17:15; Status DC Iohexol (Omnipaque 350 Mg/ml) 100 ml 1X ONCE IV Last administered on 01/07/19at 14:07; Start 01/07/19 at 14:30; Stop 01/07/19 at 14:31; Status DC Info (CONTRAST GIVEN -- Rx MONITORING) 1 each PRN DAILY PRN MC SEE COMMENTS; Start 01/07/19 at 14:15; Stop 01/09/19 at 14:14 Labetalol HCl (Normodyne Iv Push) 20 mg PRN Q2HR PRN IVP HYPERTENSION Last administered on 01/07/19at 16:41; Start 01/07/19 at 16:30 Non-Formulary Medication (Lisinopril/ Hydrochlorothiazide (Lisinopril-Hctz 10- 12.5 Mg Tab)) 2 tab DAILY PO ; Start 01/08/19 at 09:00; Status UNV Atorvastatin Calcium (Lipitor) 10 mg QHS PO Last administered on 01/08/19at 21:14; Start 01/07/19 at 21:00 Insulin Glargine (Lantus) 5 units QHS SQ Last administered on 01/08/19at 21:21; Start 01/07/19 at 21:00 Insulin Human Lispro (HumaLOG) 0-7 UNITS TIDWMEALS SQ ; Start 01/07/19 at 17:30 Dextrose (Dextrose 50%-Water Syringe) 12.5 gm PRN Q15MIN PRN IV SEE COMMENTS; Start 01/07/19 at 17:15 Aspirin (Children'S Aspirin) 81 mg DAILY PO ; Start 01/08/19 at 09:00; Stop 01/08/19 at 09:00; Status DC Lisinopril (Prinivil) 20 mg DAILY PO Last administered on 01/09/19at 08:41; Start 01/07/19 at 17:30 Hydrochlorothiazide (Hydrodiuril) 25 mg DAILY PO Last administered on 01/09/19at 08:41; Start 01/07/19 at 17:30 Magnesium Sulfate/ Dextrose 100 ml @ 25 mls/hr 1X ONCE IV Last administered on 01/07/19at 22:12; Start 01/07/19 at 20:00; Stop 01/07/19 at 23:59; Status DC Nitroglycerin (Nitrostat) 0.4 mg PRN Q5MIN PRN SL CHEST PAIN; Start 01/07/19 at 20:00; Stop 01/08/19 at 14:58; Status DC Enoxaparin Sodium (Lovenox 40mg Syringe) 40 mg Q24H SQ Last administered on 01/08/19at 21:15; Start 01/07/19 at 20:15 Clopidogrel Bisulfate (Plavix) 75 mg 1X ONCE PO Last administered on 01/08/19at 09:54; Start 01/08/19 at 10:00; Stop 01/08/19 at 10:01; Status DC Lidocaine HCl (Xylocaine-Mpf 1% 2ml Vial) 2 ml STK-MED ONCE .ROUTE ; Start 01/08/19 at 13:56; Stop 01/08/19 at 13:57; Status DC Iohexol (Omnipaque 300 Mg/ml) 100 ml STK-MED ONCE .ROUTE ; Start 01/08/19 at 13:56; Stop 01/08/19 at 13:57; Status DC Heparin Sodium/ Sodium Chloride 500 ml @ As Directed STK-MED ONCE .ROUTE ; Start 01/08/19 at 13:56; Stop 01/08/19 at 13:57; Status DC Fentanyl Citrate (Fentanyl 2ml Vial) 100 mcg STK-MED ONCE .ROUTE ; Start 01/08/19 at 14:06; Stop 01/08/19 at 14:07; Status DC Midazolam HCl (Versed) 2 mg STK-MED ONCE .ROUTE ; Start 01/08/19 at 14:06; Stop 01/08/19 at 14:07; Status DC Heparin Sodium (Porcine) (Heparin Sodium) 10,000 unit STK-MED ONCE .ROUTE ; Start 01/08/19 at 14:06; Stop 01/08/19 at 14:07; Status DC Verapamil HCl (Verapamil) 5 mg STK-MED ONCE .ROUTE ; Start 01/08/19 at 14:06; Stop 01/08/19 at 14:07; Status DC Nitroglycerin (Nitroglycerin) 200 mcg STK-MED ONCE .ROUTE ; Start 01/08/19 at 14:06; Stop 01/08/19 at 14:07; Status DC Nitroglycerin (Nitroglycerin) 200 mcg 1X ONCE IART Last administered on 01/08/19at 14:53; Start 01/08/19 at 15:00; Stop 01/08/19 at 15:01; Status DC Verapamil HCl (Verapamil) 2.5 mg 1X ONCE IART Last administered on 01/08/19at 14:55; Start 01/08/19 at 15:00; Stop 01/08/19 at 15:01; Status DC Heparin Sodium (Porcine) (Heparin Sodium) 2,500 unit 1X ONCE IART Last administered on 01/08/19at 14:54; Start 01/08/19 at 15:00; Stop 01/08/19 at 15:01; Status DC Heparin Sodium/ Sodium Chloride (HEPARIN for ARTERIAL LINE FLUSH) 1,000 unit 1X ONCE IART Last administered on 01/08/19at 14:53; Start 01/08/19 at 15:00; Stop 01/08/19 at 15:01; Status DC Midazolam HCl (Versed) 2 mg 1X ONCE IV Last administered on 01/08/19at 14:56; Start 01/08/19 at 15:00; Stop 01/08/19 at 15:01; Status DC Fentanyl Citrate (Fentanyl 2ml Vial) 25 mcg 1X ONCE IV Last administered on 01/08/19at 14:55; Start 01/08/19 at 15:00; Stop 01/08/19 at 15:01; Status DC Iohexol (Omnipaque 300 Mg/ml) 96 ml 1X ONCE IART Last administered on 01/08/19at 14:55; Start 01/08/19 at 15:00; Stop 01/08/19 at 15:01; Status DC Lidocaine HCl (Xylocaine-Mpf 1% 2ml Vial) 2 ml 1X ONCE INJ Last administered on 01/08/19at 14:55; Start 01/08/19 at 15:00; Stop 01/08/19 at 15:01; Status DC Sodium Chloride 1,000 ml @ 60 mls/hr [id number] IV Last administered on 01/08/19at 15:09; Start 01/08/19 at 15:00 Nitroglycerin (Nitrostat) 0.4 mg PRN Q5MIN PRN SL CHEST PAIN; Start 01/08/19 at 15:00 Active Scripts Active Diclofenac Sodium 50 Mg Tablet.dr 1 Tab PO BID Lipitor (Atorvastatin Calcium) 10 Mg Tablet 1 Tab PO QHS Aspirin 81 Mg Tab.chew 1 Tab PO DAILY Reported Vitamin D3 (Cholecalciferol (Vitamin D3)) 2,000 Unit Capsule 2,000 Unit PO DAILY Januvia (Sitagliptin Phosphate) 100 Mg Tablet 1 Tab PO DAILY Lisinopril-Hctz 10-12.5 Mg Tab (Lisinopril/Hydrochlorothiazide) 1 Each Tablet 2 Tab PO DAILY Metformin Hcl 500 Mg Tablet 2 Tab PO BID Vitals/I & O Vital Sign - Last 24 Hours 01/08/19 01/08/19 01/08/19 01/08/19 11:00 14:55 14:55 14:57 Temp 98.0 98.0 Pulse 82 79 79 Resp 18 16 18 B/P (MAP) 138/79 (98) Pulse Ox 97 96 O2 Delivery Room Air Room Air 01/08/19 01/08/19 01/08/19 01/08/19 15:00 15:09 15:15 15:30 Pulse 80 79 86 86 B/P (MAP) 163/81 (108) 163/81 145/73 (97) 163/87 (112) Pulse Ox 97 97 97 01/08/19 01/08/19 01/08/19 01/08/19 15:45 16:02 16:30 17:00 Pulse 82 86 84 84 B/P (MAP) 148/75 (99) 145/75 (98) 143/78 (99) 137/67 (90) Pulse Ox 98 98 98 98 01/08/19 01/08/19 01/08/19 01/08/19 18:00 19:05 20:00 23:00 Temp 99.1 98.9 99.1 98.9 Pulse 89 92 87 Resp 17 18 B/P (MAP) 131/61 (84) 136/72 (93) 121/69 (86) Pulse Ox 98 98 97 O2 Delivery Room Air Room Air Room Air 01/09/19 01/09/19 01/09/19 03:15 07:00 08:41 Temp 97.1 97.6 97.1 97.6 Pulse 82 86 81 Resp 18 18 B/P (MAP) 112/58 (76) 138/80 (99) 143/80 Pulse Ox 97 98 O2 Delivery Room Air Room Air Intake and Output 01/08/19 01/08/19 01/09/19 14:59 22:59 06:59 Intake Total 500 ml Output Total 0 ml Balance 500 ml TAMAR ARCE MD January 09, 2019 10:09
[2019-01-09 11:00] VITALS: BP 168/85
[2019-01-09 15:00] VITALS: BP 130/85
--- NOTE | 2019-01-09 15:16 | PDOC3 ---
Discharge Summary Date of Admission: January 07, 2019 Date of Discharge: January 09, 2019 Follow-Up: 3-5 days Admitting Diagnosis comment: discharge dx chest pain nl cath Assessment/Plan A/P: Chest pain - moderate-high risk for ACS given DM2, HTN, post-menopausal, family history positive. Initial troponin and EKG negative, will trend troponin, consult cardiology. DM2 (A1c 6.9) - on metformin, januvia and toujeo. Advised SGLT-2 and GLP-1 outpatient, willl place on basal bolus plus inpatient. Morbid Obesity - counseled on weight loss, advised SGLT-2 (jardiance) and GLP1 (victoza) for her DM2 as well HTN - cont home meds, monitor Ex-smoker - 8 years quit. Will monitor Hypomagnesemia - will replace, Positive D dimer - CTPA not helpful, FEN - Cardiac ADA diet, NPO after midnight PPX - lovenox FULL CODE CVC for chest pain higher risk for ACS home today 01/09 d/c planning 23 min Vitals Vitals Vital Signs Date Time Temp Pulse Resp B/P (MAP) Pulse Ox O2 Delivery O2 Flow Rate FiO2 01/09/19 08:41 81 143/80 01/09/19 07:00 97.6 18 98 Room Air 97.6 Physical Exam General: Alert, Oriented X3, Cooperative, No acute distress Heart: Regular rate (SR), Normal S1, Normal S2, No murmurs Lungs: Clear Abdomen: Normal bowel sounds, Soft, No tenderness, Other (obese) Extremities: No clubbing, No cyanosis, Other (1+ bilateral LE pittingede) Skin: No breakdown, No significant lesion Labs LABS Laboratory Tests Test 01/08/19 11:31 01/08/19 16:21 01/08/19 20:47 01/09/19 07:47 Glucose (Fingerstick) 137 mg/dL (70-99) 149 mg/dL (70-99) 181 mg/dL (70-99) 146 mg/dL (70-99) Assessment and Plan Assessmemt and Plan Problems Medical Problems: (1) Chest pain Status: Acute (2) Elevated d-dimer Status: Acute (3) Hyperglycemia Status: Acute FINAL DIAGNOSIS Problems Medical Problems: (1) Chest pain Status: Acute (2) Elevated d-dimer Status: Acute (3) Hyperglycemia Status: Acute Brief Hospital Course Ms. Paez is a 48 old [sex] who presented with [chest pain ] CONDITION AT DISCHARGE: Improved Discharge Medications Current Medications Aspirin (Lacey Aspirin) 325 mg 1X ONCE PO ; Start 01/07/19 at 12:00; Stop 01/07/19 at 19:59; Status DC Sodium Chloride 1,000 ml @ 1,000 mls/hr 1X ONCE IV Last administered on 01/07/19at 12:20; Start 01/07/19 at 12:00; Stop 01/07/19 at 12:59; Status DC Fentanyl Citrate (Fentanyl 2ml Vial) 50 mcg 1X ONCE IV Last administered on at 13:47; Start 01/07/19 at 14:00; Stop 01/07/19 at 14:01; Status DC Ondansetron HCl (Zofran) 4 mg 1X ONCE IV Last administered on 01/07/19at 13:46; Start 01/07/19 at 14:00; Stop 01/07/19 at 14:01; Status DC Fentanyl Citrate (Fentanyl 2ml Vial) 100 mcg STK-MED ONCE .ROUTE ; Start 01/07/19 at 13:42; Stop 01/07/19 at 13:43; Status DC Ondansetron HCl (Zofran) 4 mg PRN Q8HRS PRN IV NAUSEA/VOMITING; Start 01/07/19 at 14:00; Stop 01/09/19 at 13:58; Status DC Fentanyl Citrate (Fentanyl 2ml Vial) 50 mcg PRN Q2HR PRN IV PAIN; Start 01/07/19 at 14:00; Stop 01/08/19 at 13:59; Status DC Insulin Human Lispro (HumaLOG) 0-5 UNITS TIDWMEALS SQ ; Start 01/07/19 at 17:00; Stop 01/07/19 at 17:13; Status DC Dextrose (Dextrose 50%-Water Syringe) 12.5 gm PRN Q15MIN PRN IV SEE COMMENTS; Start 01/07/19 at 14:00; Stop 01/07/19 at 17:15; Status DC Iohexol (Omnipaque 350 Mg/ml) 100 ml 1X ONCE IV Last administered on 01/07/19at 14:07; Start 01/07/19 at 14:30; Stop 01/07/19 at 14:31; Status DC Info (CONTRAST GIVEN -- Rx MONITORING) 1 each PRN DAILY PRN MC SEE COMMENTS; Start 01/07/19 at 14:15; Stop 01/09/19 at 14:14; Status DC Labetalol HCl (Normodyne Iv Push) 20 mg PRN Q2HR PRN IVP HYPERTENSION Last administered on 01/07/19at 16:41; Start 01/07/19 at 16:30 Non-Formulary Medication (Lisinopril/ Hydrochlorothiazide (Lisinopril-Hctz 10- 12.5 Mg Tab)) 2 tab DAILY PO ; Start 01/08/19 at 09:00; Status UNV Atorvastatin Calcium (Lipitor) 10 mg QHS PO Last administered on 01/08/19at 21:14; Start 01/07/19 at 21:00 Insulin Glargine (Lantus) 5 units QHS SQ Last administered on 01/08/19at 21:21; Start 01/07/19 at 21:00 Insulin Human Lispro (HumaLOG) 0-7 UNITS TIDWMEALS SQ Last administered on 01/09/19at 12:59; Start 01/07/19 at 17:30 Dextrose (Dextrose 50%-Water Syringe) 12.5 gm PRN Q15MIN PRN IV SEE COMMENTS; Start 01/07/19 at 17:15 Aspirin (Children'S Aspirin) 81 mg DAILY PO ; Start 01/08/19 at 09:00; Stop 01/08/19 at 09:00; Status DC Lisinopril (Prinivil) 20 mg DAILY PO Last administered on 01/09/19at 08:41; Start 01/07/19 at 17:30 Hydrochlorothiazide (Hydrodiuril) 25 mg DAILY PO Last administered on 01/09/19at 08:41; Start 01/07/19 at 17:30 Magnesium Sulfate/ Dextrose 100 ml @ 25 mls/hr 1X ONCE IV Last administered on 01/07/19at 22:12; Start 01/07/19 at 20:00; Stop 01/07/19 at 23:59; Status DC Nitroglycerin (Nitrostat) 0.4 mg PRN Q5MIN PRN SL CHEST PAIN; Start 01/07/19 at 20:00; Stop 01/08/19 at 14:58; Status DC Enoxaparin Sodium (Lovenox 40mg Syringe) 40 mg Q24H SQ Last administered on 01/08/19at 21:15; Start 01/07/19 at 20:15; Stop 01/09/19 at 13:43; Status DC Clopidogrel Bisulfate (Plavix) 75 mg 1X ONCE PO Last administered on 01/08/19at 09:54; Start 01/08/19 at 10:00; Stop 01/08/19 at 10:01; Status DC Lidocaine HCl (Xylocaine-Mpf 1% 2ml Vial) 2 ml STK-MED ONCE .ROUTE ; Start 01/08/19 at 13:56; Stop 01/08/19 at 13:57; Status DC Iohexol (Omnipaque 300 Mg/ml) 100 ml STK-MED ONCE .ROUTE ; Start 01/08/19 at 13:56; Stop 01/08/19 at 13:57; Status DC Heparin Sodium/ Sodium Chloride 500 ml @ As Directed STK-MED ONCE .ROUTE ; Start 01/08/19 at 13:56; Stop 01/08/19 at 13:57; Status DC Fentanyl Citrate (Fentanyl 2ml Vial) 100 mcg STK-MED ONCE .ROUTE ; Start 01/08/19 at 14:06; Stop 01/08/19 at 14:07; Status DC Midazolam HCl (Versed) 2 mg STK-MED ONCE .ROUTE ; Start 01/08/19 at 14:06; Stop 01/08/19 at 14:07; Status DC Heparin Sodium (Porcine) (Heparin Sodium) 10,000 unit STK-MED ONCE .ROUTE ; Start 01/08/19 at 14:06; Stop 01/08/19 at 14:07; Status DC Verapamil HCl (Verapamil) 5 mg STK-MED ONCE .ROUTE ; Start 01/08/19 at 14:06; Stop 01/08/19 at 14:07; Status DC Nitroglycerin (Nitroglycerin) 200 mcg STK-MED ONCE .ROUTE ; Start 01/08/19 at 14:06; Stop 01/08/19 at 14:07; Status DC Nitroglycerin (Nitroglycerin) 200 mcg 1X ONCE IART Last administered on 01/08/19at 14:53; Start 01/08/19 at 15:00; Stop 01/08/19 at 15:01; Status DC Verapamil HCl (Verapamil) 2.5 mg 1X ONCE IART Last administered on 01/08/19at 14:55; Start 01/08/19 at 15:00; Stop 01/08/19 at 15:01; Status DC Heparin Sodium (Porcine) (Heparin Sodium) 2,500 unit 1X ONCE IART Last administered on 01/08/19at 14:54; Start 01/08/19 at 15:00; Stop 01/08/19 at 15:01; Status DC Heparin Sodium/ Sodium Chloride (HEPARIN for ARTERIAL LINE FLUSH) 1,000 unit 1X ONCE IART Last administered on 01/08/19at 14:53; Start 01/08/19 at 15:00; Stop 01/08/19 at 15:01; Status DC Midazolam HCl (Versed) 2 mg 1X ONCE IV Last administered on 01/08/19at 14:56; Start 01/08/19 at 15:00; Stop 01/08/19 at 15:01; Status DC Fentanyl Citrate (Fentanyl 2ml Vial) 25 mcg 1X ONCE IV Last administered on 01/08/19at 14:55; Start 01/08/19 at 15:00; Stop 01/08/19 at 15:01; Status DC Iohexol (Omnipaque 300 Mg/ml) 96 ml 1X ONCE IART Last administered on 01/08/19at 14:55; Start 01/08/19 at 15:00; Stop 01/08/19 at 15:01; Status DC Lidocaine HCl (Xylocaine-Mpf 1% 2ml Vial) 2 ml 1X ONCE INJ Last administered on 01/08/19at 14:55; Start 01/08/19 at 15:00; Stop 01/08/19 at 15:01; Status DC Sodium Chloride 1,000 ml @ 60 mls/hr [id number] IV Last administered on 01/08/19at 15:09; Start 01/08/19 at 15:00 Nitroglycerin (Nitrostat) 0.4 mg PRN Q5MIN PRN SL CHEST PAIN; Start 01/08/19 at 15:00 Enoxaparin Sodium (Lovenox 60mg Syringe) 60 mg Q12HR SQ ; Start 01/09/19 at 21:00 Active Scripts Active Diclofenac Sodium 50 Mg Tablet.dr 1 Tab PO BID Lipitor (Atorvastatin Calcium) 10 Mg Tablet 1 Tab PO QHS Aspirin 81 Mg Tab.chew 1 Tab PO DAILY Reported Vitamin D3 (Cholecalciferol (Vitamin D3)) 2,000 Unit Capsule 2,000 Unit PO DAILY Januvia (Sitagliptin Phosphate) 100 Mg Tablet 1 Tab PO DAILY Lisinopril-Hctz 10-12.5 Mg Tab (Lisinopril/Hydrochlorothiazide) 1 Each Tablet 2 Tab PO DAILY Metformin Hcl 500 Mg Tablet 2 Tab PO BID Vital Signs Vital Signs Date Time Temp Pulse Resp B/P (MAP) Pulse Ox O2 Delivery O2 Flow Rate FiO2 01/09/19 11:00 98.3 82 18 168/85 (112) 98 Room Air 98.3 Labs Laboratory Tests Test 01/07/19 16:35 01/07/19 16:55 01/07/19 20:00 01/07/19 20:56 Glucose (Fingerstick) 97 mg/dL (70-99) 141 mg/dL (70-99) Troponin I Quantitative < 0.017 ng/mL (0.000-0.055) < 0.017 ng/mL (0.000-0.055) Test 01/08/19 05:00 01/08/19 07:22 01/08/19 11:31 01/08/19 16:21 Sodium Level 141 mmol/L (136-145) Potassium Level 4.2 mmol/L (3.5-5.1) Chloride Level 103 mmol/L (98-107) Carbon Dioxide Level 30 mmol/L (21-32) Anion Gap 8 (6-14) Blood Urea Nitrogen 12 mg/dL (7-20) Creatinine 0.9 mg/dL (0.6-1.0) Estimated GFR (Cockcroft-Gault) 66.8 Glucose Level 128 mg/dL (70-99) Calcium Level 9.0 mg/dL (8.5-10.1) Magnesium Level 2.3 mg/dL (1.8-2.4) Triglycerides Level 128 mg/dL (0-150) Cholesterol Level 165 mg/dL (0-200) LDL Cholesterol, Calculated 99 mg/dL (0-100) VLDL Cholesterol, Calculated 26 mg/dL (0-40) Non-HDL Cholesterol Calculated 125 mg/dL (0-129) HDL Cholesterol 40 mg/dL (40-60) Cholesterol/HDL Ratio 4.1 Glucose (Fingerstick) 148 mg/dL (70-99) 137 mg/dL (70-99) 149 mg/dL (70-99) Test 01/08/19 20:47 01/09/19 07:47 01/09/19 11:57 Glucose (Fingerstick) 181 mg/dL (70-99) 146 mg/dL (70-99) 194 mg/dL (70-99) Laboratory Tests Test 01/08/19 16:21 01/08/19 20:47 01/09/19 07:47 01/09/19 11:57 Glucose (Fingerstick) 149 mg/dL (70-99) 181 mg/dL (70-99) 146 mg/dL (70-99) 194 mg/dL (70-99) Allergies Allergies Coded Allergies Type Severity Reaction Last Updated Verified aspirin Allergy Intermediate rash 01/07/19 Yes codeine Allergy Intermediate 10/20/15 Yes Disposition/Orders: D/C to Home Patient Instructions d/c planning 23 min TAMAR ARCE MD January 09, 2019 15:16
--- NOTE | 2019-01-09 15:18 | DISCH ---
DISCHARGE INSTRUCTIONS Condition on Discharge Condition on Discharge: Stable Activity After Discharge Activity Instructions for Disc: Activity as tolerated Lifting Instructions after Dis: No heavy lifting, No pulling or pushing Exercise Instruction after Dis: Walk 10 min, 3 x per day Driving Instructions after Dis: Do not drive today Diet after Discharge Diet after Discharge: Cardiac, Diabetic No Calorie Level Checks after Discharge Checks after discharge: Check blood sugar, ac/hs Contacting the DR. after DC Call your doctor for: If your condition worsens TAMAR ARCE MD January 09, 2019 15:18
--- NOTE | 2019-01-09 17:00 | NUR ---
Discharge Note: CORBY HAYES [address] [place] [address] Discharge instructions and discharge home medications reviewed with Patient and a copy given. All questions have been answered and understanding verbalized. The following instructions and handouts were given: chest pain info, discharge instructions, heart cath post care instructions. Discontinued lines and drains: Peripheral IV intact. Patient discharged to Home or Self Care with Family Member via [facility] at 1700.
== END 2019-01-09 17:00 | disposition home or self-care (01) ==
LOC: ER 11:27 → 2 SOUTH 13:40
PROVIDERS: ADMIT Family Medicine; ATTEND Family Medicine
DX: R07.2 Precordial pain (principal); Z98.890 Other specified postprocedural states; Z87.891 Personal history of nicotine dependence; R61 Generalized hyperhidrosis; R00.2 Palpitations; Z88.6 Allergy status to analgesic agent; E11.65 Type 2 diabetes mellitus with hyperglycemia; R79.89 Other specified abnormal findings of blood chemistry; I10 Essential (primary) hypertension; Z82.49 Family history of ischemic heart disease and other diseases of the circulatory system; Z90.49 Acquired absence of other specified parts of digestive tract; J45.909 Unspecified asthma, uncomplicated; E83.42 Hypomagnesemia
CPT/HCPCS: 36415; 71275; 78582; 80048; 80053; 80061; 82553; 82962; 83690; 83735; 83880; 84443; 84484; 85025; 85379; 85610; 93005; 93306; 93458; 93970; 96365; 96366; 96372; 96375; 96376; 99284; A9540; A9558; C1769; C1892; G0378; J1644; J1650; J1815; J2250; J2405; J3010; J3475; J3490; J7030; Q9967; 96374; 99152; 99153; A9500; G0379

== ENCOUNTER → 2021-03-01 | Day surgery (SDC) | payer BC ==
[~2021-03-01] VITALS: Ht 166.4 cm; Wt 298.0 kg
[~2021-03-01] MED LIST changes: +AMLO-186 PO; +ATOR20TA58 PO; +CHOL20009 PO; +FURO20TA3 PO; +INSU300I3 SQ; +IV RINGERS,LACTATED 1000ML 1,000 ML IV SCH; +LIDOCAINE 2% PF 5 ML VIAL. ONE; +LISI-130 PO; +LISI1TAB23 PO; -LISI1TAB3 PO; +METO-239 PO; +POTA10TA6 PO; +PROPOFOL 10 MG/ML (20ML) VIAL. IV ONE
[2021-03-01 08:49] VITALS: BP 170/64
[2021-03-01 10:35] VITALS: BP 139/75
--- NOTE | 2021-03-05 17:07 | PATHOLOGY ---
[facility] Accession Number: [id number] . 01 Material submitted: . PART A: small bowel - SMALL BOWEL BIOPSY PART B: stomach - BIOPSY GASTRIC ANTRUM. Modifiers: ANTRUM PART C: esophagus - BIOPSY DISTAL ESOPHAGUS. Modifiers: distal . 01 Clinical history: . ANEMIA EGD/COLONOSCOPY . 02 Diagnosis: A. Small bowel biopsies: - No diagnostic abnormalities. . B. Gastric biopsies, antrum: - Reactive gastropathy. . C. Esophageal biopsies, distal esophagus: - Segments of hyperplastic squamous esophageal mucosa with focal contiguous columnar lined mucosa showing chronic inflammation and focal intestinal metaplasia with goblet cells consistent with [place]'s change. (JPM:jacy; 03/05/2021) [facility] 03/05/2021 1109 Local . 02 Comment: Sections of the small bowel biopsy reveal segments of duodenal and small intestine mucosa. Where best oriented, the mucosal villi show no sprue-like changes or significant inflammatory changes. . Sections of the gastric antral biopsy show congestion, foveolar hyperplasia, and no significant inflammation. A properly controlled immunoperoxidase stain for Helicobacter is negative for Helicobacter organisms. The findings are consistent with a reactive gastropathy. . Sections of the distal esophageal biopsy reveal segments of hyperplastic squamous esophageal mucosa with focal contiguous columnar lined mucosa showing mild to moderate chronic inflammation and focal intestinal metaplasia with goblet cells consistent with [place]'s change. There is no dysplasia or evidence of malignancy. (JPM:jacy; 03/05/2021) . Special stain performed: Immunoperoxidase stain for Helicobacter on B1 . Electronically signed: . Rich Pretty MD, Pathologist NPI- [id number] . 01 Gross description: . A. The specimen is received in formalin, labeled "Magenheimercox, Ysabel, small bowel BX ". Received are 5 segments of pale carrera tissue ranging in size from 0.1 to 0.6 cm in maximum dimensions. The specimen is submitted entirely in cassette A1. . B. The specimen is received in formalin, labeled "BouchraeimercoxKendelli, BX gastric antrum ". Received are 3 segments of pale carrera tissue ranging in size from 0.3 to 0.5 cm in maximum dimensions. The specimen is submitted entirely in cassette B1. . C. The specimen is received in formalin, labeled "Froilannheimercox, Ysabel, BX distal esophagus ". Received are 2 segments of pale carrera tissue ranging in size from 0.3 to 0.4 cm in maximum dimensions. The specimen is submitted entirely in cassette C1.([facility]; 03/02/2021) [facility] 03/05/2021 1104 Local . 02 Pathologist provided ICD-10: K31.9, K20.90, K22.70 . 02 CPT . 321853, 225899, 526226, [id number] Specimen Comment: A courtesy copy of this report has been sent to [phone], [phone] Specimen Comment: [id number] Specimen Comment: Report sent to / DR GRIER Performed at: 01 [facility] [address], [place] [id number] MD Pablo Will MD Phone: [phone] Performed at: 02 [facility] [address] [place], [place] [id number] MD Rich Pretty MD Phone: [phone]
== END | disposition home or self-care (01) ==
LOC: ENDOS 08:23
PROVIDERS: ATTEND Internal Medicine Gastroenterology
DX: D50.9 Iron deficiency anemia, unspecified (principal); K64.0 First degree hemorrhoids; K21.00 Gastro-esophageal reflux disease with esophagitis, without bleeding; K25.9 Gastric ulcer, unspecified as acute or chronic, without hemorrhage or perforation; K22.70 Barrett's esophagus without dysplasia; K31.89 Other diseases of stomach and duodenum; K63.89 Other specified diseases of intestine; I10 Essential (primary) hypertension; J45.909 Unspecified asthma, uncomplicated; E66.9 Obesity, unspecified; M19.90 Unspecified osteoarthritis, unspecified site; E11.9 Type 2 diabetes mellitus without complications; Z98.51 Tubal ligation status; Z98.890 Other specified postprocedural states; Z79.84 Long term (current) use of oral hypoglycemic drugs; Z79.899 Other long term (current) drug therapy; Z87.891 Personal history of nicotine dependence; Z88.5 Allergy status to narcotic agent; Z88.8 Allergy status to other drugs, medicaments and biological substances; Z20.822 Contact with and (suspected) exposure to COVID-19
CPT/HCPCS: 43239; 45378; 82962; 87426; J2704